=== PATIENT | female | born 1960 | race Caucasian/White ===

== ENCOUNTER 2019-05-02 12:35 | Emergency (ER) | payer OTHER, SELFPAY ==
--- NOTE | 2019-05-02 13:08 | ED.SKABFB ---
HPI - Skin/Abscess/Foreign Bdy General Chief complaint: Wound/Laceration Stated complaint: Possible infection Time Seen by Provider: 05/02/19 13:05 Source: patient and RN notes reviewed Mode of arrival: ambulatory Limitations: no limitations History of Present Illness HPI narrative: 58-year-old female presents with concern for wound infection. Reports she had breast reconstruction surgery, with implants, after breast cancer with a doctor in [place]. Reports she noticed about 2 days ago that the underside of the left breast was weeping. She reports that she called her surgeon who prescribed clindamycin and Bactrim. She reports she just started taking his medications. She reports copious amount of purulent drainage she has been changing the dressing several times daily. She reports on she had a fever of 102, reports intermittent low-grade fever between now and then. Denies general malaise. Patient reports her doctor wanted her to get a culture of the wound. MD complaint: other (Wound) Related Data Home Medications Medication Instructions Recorded Confirmed amitriptyline 10 mg tablet 10 mg PO TID tablet 04/10/19 bupropion HCl 300 mg 24 hr tablet, 300 mg PO QAM 04/10/19 extended release hydrochlorothiazide 25 mg tablet 25 mg PO DAILY 04/10/19 metoprolol succinate 25 mg 25 mg PO DAILY 04/10/19 tablet,extended release 24 hr collagenase clostridium histo. 1 applic TOPICAL DIRECTED 05/02/19 05/02/19 [Santyl] pregabalin 05/02/19 Allergies Allergy/AdvReac Type Severity Reaction Status Date / Time azithromycin Allergy Mild HIVES Verified 11/01/15 20:31 prednisone Allergy Mild HIVES Verified 11/01/15 20:31 erythromycin base Allergy Unknown Verified 11/29/16 10:03 Review of Systems Review of Systems: Narrative: CONSTITUTIONAL: Denies malaise, chills, sweats. Reports fever. CARDIOVASCULAR: Denies chest pain, palpitations, or edema. RESPIRATORY: Denies cough or dyspnea. GASTROINTESTINAL: Denies abdominal pain, nausea, vomiting, diarrhea SKIN: Reports weeping wound under her left breast, denies pain at the wound site MUSCULOSKELETAL: Denies myalgia. NEUROLOGIC: Denies headache. All systems reviewed & are unremarkable except as noted in HPI and below PMFSH Family History Family History (Updated 11/25/13 @ 07:13 by DOCTOR UNKNOWN) Sibling Family history of thyroid disease Hypertension Father Hypertension Mother Hypertension Family history of malignant neoplasm Family history of chronic obstructive pulmonary disease Social History Social History Smoking status: Former smoker Second hand tobacco smoke exposure: No Smoking end date: 03/31/80 Alcohol intake: current Comments At time of signature, agree with nursing past medical, surgical, social and family history. There is no relevant family history pertinent to the presenting complaint Exam Narrative: Exam Narrative: GENERAL: Well-appearing, well-nourished, and in no acute distress. HEAD: Normocephalic EYES: PERRLA, conjunctivae clear ENT: Mucous membranes moist. NECK: Supple. CHEST: No respiratory distress. Speaks in full sentences. HEART: Regular rate and rhythm. No murmur heard. Normal peripheral pulses. SKIN: Warm, dry, no rash. 2.5 cm x 2 cm wound at the surgical site under the left breast with mild surrounding erythema and induration, yellow wound bed, copious purulent drainage, not tender to palpation NEURO: Alert and oriented x3. PSYCH: Normal mood and affect Course Course Emergency Course: Wound culture taken, patient instructed how to get results of culture to send to her doctor in [place]. Patient is aware of diagnosis, understands and agrees to treatment plan. Anticipatory guidance given. Patient agrees to follow-up as directed and is aware of reasons to seek care at the emergency department. Portions of this record may have been created with voice recognition software Vital Signs Vital signs: V
[2019-05-02 13:09] VITALS: BP 161/96; PULSE 114; RESP 16; TEMP 37.9; O2SAT 98
== END 2019-05-02 13:21 | disposition home or self-care (01) ==
PROVIDERS: Emergency Provider Nurse Practitioner
DX: T81.49XA Infection following a procedure, other surgical site, initial encounter (principal); Z87.891 Personal history of nicotine dependence
CPT/HCPCS: 87070; 87075; 87076; 87077; 87186; 87205; 99213; G0463

== ENCOUNTER 2019-09-30 13:38 | Outpatient (CLI) | payer OTHER, SELFPAY ==
--- NOTE | 2019-09-30 | ECG_ITS ---
Measurements Intervals [place] Rate: 76 P: 62 AR: 166 QRS: 35 QRSD: 93 T: 33 QT: 364 QTc: 410 Interpretive Statements SINUS RHYTHM LOW QRS VOLTAGE IN PRECORDIAL LEADS BORDERLINE ECG Electronically Signed On 09-30-2019 14:53:01 CDT by Tommie Singh D.O.
--- NOTE | ~2019-09-30 | XR_ITS ---
EXAMINATION: XR chest 2V 09/30/2019 14:40 INDICATION: Preop. History of breast cancer. PROCEDURE: Two-view chest COMPARISON: 11/18/2018 FINDINGS: The lungs are clear. The cardiomediastinal silhouette is within normal limits. There are no pleural effusions. There is no pneumothorax suspected. There are surgical changes in the right c hest. IMPRESSION: 1: NO ACUTE CARDIOPULMONARY DISEASE. Reviewed, dictated and finalized at location A.
[2019-09-30 14:26] LABS: Hematocrit 38.4 % (37.0-47.0); Hemoglobin 12.4 g/dL (12.0-15.0); Mean Corpuscular HGB Conc 32.3 g/dl (32-36); Mean Corpuscular Hemoglobin 29.5 pg (26-34); Mean Corpuscular Volume 91.4 fl (80-100); Mean Platelet Volume 9.5 fl (7.4-10.4); Platelet Count Result 168 k/mm3 (150-375); Red Cell Distribution Width 14.9 % (11.5-14.5); White Blood Count 5.1 K/mm3 (4.5-10.0)
[2019-09-30 14:35] LABS: Add Urine Microscopic? YES; Appearance Urine Clear (Clear); Bilirubin Urine Negative (Negative); Blood Urine 1+ (Negative); Color Urine Straw (Yellow); Glucose Urine UA Negative (Negative); Ketones Urine Negative (Negative); Leukocyte Esterase Ur Negative LEU/UL (Negative); Mucus Urine Rare /lpf; Nitrate Urine Negative (Negative); Protein Urine Negative (Negative); RBC Urine 0-2 /hpf (0-2); Squamous Epithelial Cell Urine Occasional /hpf (Few); Urobilinogen Urine Negative mg/dL (<2.0); WBC Urine 0-3 /hpf
[2019-09-30 14:40] LABS: Blood Urea Nitrogen 12 mg/dL (7-17); Calcium 9.6 mg/dL (8.4-10.2); Carbon Dioxide 30 mmol/L (22-30); Chloride 100 mmol/L (98-107); Estimated Glomerular Filt Rate > 60; Glucose 102 mg/dL (65-105); Potassium 3.4 mmol/L (3.4-5.0); Sodium 139 mmol/L (137-145)
== END 2019-09-30 13:39 | disposition home or self-care (01) ==
PROVIDERS: PCP Internal Medicine
DX: Z01.818 Encounter for other preprocedural examination (principal); R94.31 Abnormal electrocardiogram [ECG] [EKG]
CPT/HCPCS: 36415; 71046; 80048; 81001; 85027; 93005

== ENCOUNTER → 2019-12-31 12:16 | Outpatient (CLI) | payer OTHER, SELFPAY ==
--- NOTE | ~2019-12-31 | DEXA_ITS ---
Bone Density Report Name: Yashira Heller Age: 59 Sex: Female Ethnicity: White Date of : 1960 Indication: osteopenia; parental hip fracture; cancer; postmenopausal Referring Provider: IVONNE, OZZIE Study: Bone densitometry was performed. Exam Date: December 31, 2019 Accession number: [id number] Bone Density: Region BMD T-score Z-score Classification AP Spine (L1-L4) 0.704 -3.1 -1.8 Osteoporosis Femoral Neck (Left) 0.565 -2.6 -1.3 Osteoporosis Total Hip (Left) 0.680 -2.2 -1.3 Osteopenia Femoral Neck (Right) 0.534 -2.8 -1.6 Osteoporosis Total Hip (Right) 0.702 -2.0 -1.1 Osteopenia Total Hip Mean 0.691 -2.1 -1.2 Osteopenia World Health Organization criteria for BMD impression classify patients as: Normal (T-score at or above -1.0), Osteopenia (T-score between -1.0 and -2.5), or Osteoporosis (T-score at or below -2.5). 10-year Fracture Risk: FRAX not reported because: Some T-score for Spine Total or Hip Total or Femoral Neck at or below -2.5 Previous Exams: Region Exam Age BMD T-score BMD Change BMD Change Date g/cm2 vs Baseline vs Previous AP Spine(L1-L4) 12/31/2019 59 0.704 -3.1 -0.075* -0.075* 01/29/2017 56 0.778 -2.4 Total Hip(Left) 12/31/2019 59 0.680 -2.2 -0.018 -0.018 01/29/2017 56 0.698 -2.0 Total Hip(Right) 12/31/2019 59 0.702 -2.0 -0.020 -0.020 01/29/2017 56 0.722 -1.8 *Denotes significance at 95% confidence level, LSC for AP Spine = 0.022 g/cm2, LSC for Total Hip = 0.027 g/cm2 Clinical Information Provided by Patient: Parent has had a hip fracture Has used the following medications: Boniva (i.e. ibandronate), Vitamin D, Calcium Has the following medical conditions: Cancer Patient maximum height was 62.0 Menopause Age: 51 No regular weight bearing exercise Drinks caffeinated beverages Onset of menses at age 14 Number of children 2 Missed period for more than 6 months in a row Impression: The patient has osteoporosis, based on the Total Spine T-score. The patient has risk factors, including: parental hip fracture. The BMD for the AP Spine(L1-L4) decreased, changing by -0.075 since the last DXA exam. Discussion: INCREASED RISK OF FRACTURE. BONE DENSITY IS UNDESIRABLY LOW AT ONE OR MORE SKELETAL SITES, CONSISTENT WITH POSTMENOPAUSAL OSTEOPOROSIS. This patient's lowest T-score meets the World Health Organization's (WHO) criteria for osteoporosis at one or more
== END ==
PROVIDERS: PCP Internal Medicine; Visit Provider Nurse Practitioner
DX: M85.88 Other specified disorders of bone density and structure, other site (principal); M81.0 Age-related osteoporosis without current pathological fracture; M85.852 Other specified disorders of bone density and structure, left thigh; M85.851 Other specified disorders of bone density and structure, right thigh
CPT/HCPCS: 77080

== ENCOUNTER 2020-07-25 20:54 | Emergency (ER) | payer OTHER, SELFPAY ==
--- NOTE | ~2020-07-25 | CT_ITS ---
EXAMINATION: CT cervical spine wo con DATE: 07/25/2020 22:39 INDICATION: Fall with head injury post fall. TECHNIQUE: Computed tomography (CT) of the cervical spine was performed without intravenous contrast. Automated exposure control and iterative reconstruction technique were employed. The dose-length pro duct was 143.36 mGy-cm. COMPARISON: None FINDINGS: Straightening of the upper cervical lordosis. Vertebral body heights are normal. No fracture. Moderat e disc height loss at C4-C5 and C5-C6. Is severe bilateral uncovertebral osteoarthritis and posterior disc osteophyte complexes result in mild central canal and bilateral neural foraminal stenosis at [place] th levels. Multilevel mild bilateral cervical facet osteoarthritis. Cervical soft tissues are unremar kable. Mild biapical pleural-parenchymal scarring. Incidentally noted right azygos lobe. IMPRESSION: 1. Moderate mid cervical spondylosis. No acute osseous abnormality. Reviewed, dictated and finalized at location A.
--- NOTE | ~2020-07-25 | XR_ITS ---
EXAMINATION: XR lumbar spine 2-3V, XR pelvis 1-2V DATE: 07/25/2020 22:43 (accession [id number]), 07/25/2020 22:44 (accession [id number]) INDICATION: Low back and right hip pain post fall TECHNIQUE: 1. Anteroposterior and lateral views of the lumbar spine, and cone-down lateral view of the lumbosacr al junction were obtained. 2. AP view of the pelvis was obtained. COMPARISON: None. FINDINGS: Lumbar spine: Alignment is normal. Transitional partially lumbarized S1 segment. Likely physiologic mild anterior w edging at T11 and T12 and minimal anterior wedging at L1 and L2. Disc heights are normal. Mild to mod erate lower lumbar predominant facet osteoarthritis. There are couple 3 mm calcifications likely repr esenting renal stones project over the left kidney. Pelvis: Alignment is normal. No fracture. Bilateral hip joint spaces are normal. Mild bilateral sacroiliac os teoarthritis. Postoperative changes with multiple surgical clips both the left and right pelvis. IMPRESSION: 1. No acute osseous abnormality in the lumbar spine or pelvis. 2. Mild to moderate lower lumbar predominant facet osteoarthritis. 3. A couple 3 mm likely left renal stones. Reviewed, dictated and finalized at location A. IMPRESSION: 1. No acute osseous abnormality in the lumbar spine or pelvis. 2. Mild to moderate lower lumbar predominant facet osteoarthritis. 3. A couple 3 mm likely left renal stones.
--- NOTE | ~2020-07-25 | CT_ITS ---
EXAMINATION: CT brain wo con DATE: 07/25/2020 22:38 INDICATION: Head injury post fall TECHNIQUE: Computed tomography (CT) of the head was performed without intravenous contrast. Sagittal and coronal reconstructions were performed. The mA was adjusted according to patient size. Iterative reconstruction technique was employed. The dose-length product was 681.00 mGy-cm. COMPARISON: head CT dated 08/03/2005 FINDINGS: No fracture. No acute intracranial hemorrhage, acute infarction or abnormal extra axial fluid collect ion. There is minimal scattered white matter hypoattenuation consistent with chronic small vessel isc hemic disease. Ventricles are normal and symmetric. No mass/mass effect. Mild mucosal thickening the left maxillary sinus. The orbits and mastoid air cells are normal. IMPRESSION: 1. Normal aging brain. No fracture or acute intracranial process. Reviewed, dictated and finalized at location A.
[2020-07-25 20:56] VITALS: BP 165/94; PULSE 87; RESP 17; TEMP 36.6; O2SAT 100
--- NOTE | 2020-07-25 22:03 | ED.HEATRA ---
HPI - Head Injury General Chief complaint: Head Injury Stated complaint: fall off stool, cracked head/neck Time Seen by Provider: 07/25/20 21:10 Source: patient and family Mode of arrival: ambulatory Limitations: no limitations History of Present Illness HPI Narrative: Patient is 59 years old white female had a fall off a chair about 1.5 feet above the ground. Landed backward struck the back of her neck and head on a countertop. Patient denies loss of consciousness, went down to the floor, complaining of lower back pain. Patient denies any fever, chills, nausea, vomiting, diarrhea, constipation, chest pain or abdominal pain. Related Data Home Medications Medication Instructions Recorded Confirmed collagenase clostridium histo. 1 applic TOPICAL DIRECTED 05/02/19 09/08/19 [Santyl] pregabalin 75 mg PO DAILY 05/02/19 09/08/19 Allergies Allergy/AdvReac Type Severity Reaction Status Date / Time azithromycin Allergy Mild HIVES Verified 11/01/15 20:31 prednisone Allergy Mild HIVES Verified 11/01/15 20:31 erythromycin base Allergy Unknown Verified 11/29/16 10:03 Review of Systems Review of Systems: Narrative: CONSTITUTIONAL: Denies fever, chills, or sweats. EYES: Denies visual changes, redness, or discharge. ENT: Denies rhinorrhea, congestion, sore throat, or otalgia. CARDIOVASCULAR: Denies chest pain, palpitations, or edema. RESPIRATORY: Denies cough or dyspnea. GASTROINTESTINAL: Denies abdominal pain, nausea, vomiting, or diarrhea. GENITOURINARY: Denies dysuria or hematuria. SKIN: Denies rash or itching. MUSCULOSKELETAL: Denies back pain, joint pain, or myalgia. NEUROLOGIC: Denies headache, numbness, or weakness. PSYCHIATRIC: Denies anxiety or depression. [facility] Family History Family History Sibling Family history of thyroid disease Hypertension Father Hypertension Mother Hypertension Family history of malignant neoplasm Family history of chronic obstructive pulmonary disease Social History Social History Smoking status: Former smoker Second hand tobacco smoke exposure: No Smoking end date: 03/31/80 Alcohol intake: current Gender identity (if verbalized by the patient): Female Exam Narrative: Exam Narrative: General appearance: Well-developed, well-nourished Skin: Normal color Head: Normocephalic, nontraumatic Eyes: Clear conjunctiva ENT: Oropharynx normal, ears normal, nose normal Neck: Supple, diffuse tenderness posteriorly Chest and respiratory: Airway patent, no respiratory distress, no accessory muscle use Heart: Regular rate/rhythm Abdomen: Soft, nontender, no organomegaly, quiet bowel sounds Vascular: Normal peripheral pulses, normal capillary refill. 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 CT head and cervical spine ordered. Patient also complaining of lower back pain, history of osteopo
[2020-07-25] MEDS: ACETAMINOPHEN 325 MG TABLET 650 MG PO (23:40)
[2020-07-25] MEDS: ONDANSETRON HCL ODT 4 MG TABLET PO (23:44)
[2020-07-25 23:55] VITALS: BP 141/94; PULSE 87; RESP 16; TEMP 36.7; O2SAT 97
== END 2020-07-25 23:56 | disposition home or self-care (01) ==
PROVIDERS: Emergency Provider Emergency Medicine; PCP Internal Medicine
DX: S09.90XA Unspecified injury of head, initial encounter (principal); S10.93XA Contusion of unspecified part of neck, initial encounter; S30.0XXA Contusion of lower back and pelvis, initial encounter; N20.0 Calculus of kidney; M47.816 Spondylosis without myelopathy or radiculopathy, lumbar region; M47.812 Spondylosis without myelopathy or radiculopathy, cervical region; W07.XXXA Fall from chair, initial encounter
CPT/HCPCS: 70450; 72100; 72125; 72170; 99284; A9270; L0140

== ENCOUNTER 2021-07-31 00:43 | Emergency (ER) | payer OTHER, SELFPAY ==
[2021-07-31] VITALS (11 sets, daily range): BP systolic 114–145; BP diastolic 85–89; PULSE 73–93; RESP 13–21; TEMP 36.6; O2SAT 100
--- NOTE | ~2021-07-31 | XR_ITS ---
EXAMINATION: XR chest 2V DATE: 07/31/2021 01:15 INDICATION: Altered mental status TECHNIQUE: PA and lateral views of the chest were obtained. COMPARISON: Chest radiograph dated 09/30/2019 FINDINGS: The lungs remain clear with no focal airspace opacities, pulmonary edema, pleural effusion or pneumot horax. The cardiomediastinal silhouette is normal. Mild thoracic levocurvature. Pectus excavatum. Christin ast implants. Moderate thoracic spondylosis. IMPRESSION: 1. No acute cardiopulmonary disease. Reviewed, dictated and finalized at location A.
--- NOTE | ~2021-07-31 | CT_ITS ---
EXAMINATION: CT brain wo con DATE: 07/31/2021 01:13 INDICATION: Altered mental status. Confusion. Diplopia. TECHNIQUE: Computed tomography (CT) of the head was performed without intravenous contrast. The mA wa s adjusted according to patient size. Iterative reconstruction technique was employed. The dose-lengt h product was 605.33 mGy-cm. COMPARISON: CT 07/25/2020 FINDINGS: There is no intracranial hemorrhage, acute infarction, or abnormal intracranial mass lesion . The ventricles are normal in size. The orbits are normal. There is mild mucosal thickening in the p aranasal sinuses. The mastoid air cells are normal. IMPRESSION: 1. Normal brain. Reviewed, dictated and finalized at location D. IMPRESSION: 1. Normal brain.
--- NOTE | 2021-07-31 00:53 | ECG_ITS ---
Measurements Intervals [place] Rate: 79 P: 62 [place]: 167 QRS: 8 QRSD: 93 T: 38 QT: 361 QTc: 416 Interpretive Statements SINUS RHYTHM LOW QRS VOLTAGE IN PRECORDIAL LEADS BORDERLINE T WAVE ABNORMALITY- ANT/INF LEADS BASELINE ARTIFACT- I, III, AVL, AVF, V1, V3-V4 BORDERLINE ECG Electronically Signed On 07-31-2021 12:49:56 CDT by Tommie Singh D.O.
[2021-07-31 01:04] LABS: Glucose Point of Care 96 mg/dl (65-105)
[2021-07-31 01:07] LABS: Basophils Absolute Auto 0.1 K/mm3 (0.0-0.1); Basophils Percent Auto 1.2 % (0.2-1.2); Eosinophils Absolute Auto 0.4 K/mm3 (0-0.3); Eosinophils Percent Auto 7.1 % (0-4.4); Hemoglobin 12.7 g/dL (12.0-15.0); Immature Granulocyte Absolute 0.01 K/mm3 (0.00-0.031); Immature Granulocyte Percent A 0.2 % (0-0.5); Lymphocytes Absolute Auto 1.25 K/mm3 (0.9-3.2); Mean Corpuscular HGB Conc 32.6 g/dl (32-36); Mean Corpuscular Hemoglobin 30.9 pg (26-34); Mean Corpuscular Volume 94.9 fl (80-100); Mean Platelet Volume 9.5 fl (7.4-10.4); Monocytes Absolute Auto 0.8 K/mm3 (0.1-0.6); Monocytes Percent Auto 14.6 % (2.6-8.5); Neutrophils Absolute Auto 2.8 K/mm3 (1.3-6.7); Neutrophils Percent Auto 52.9 % (45.5-73.1); Platelet Count Result 175 k/mm3 (150-375); Red Blood Count 4.11 M/mm3 (4.2-5.4); Red Cell Distribution Width 12.9 % (11.5-14.5); White Blood Count 5.2 K/mm3 (4.5-10.0)
[2021-07-31 01:20] LABS: Anion Gap 8 mmol/L (8-16); Blood Urea Nitrogen 17 mg/dL (7-17); Carbon Dioxide 29 mmol/L (22-30); Chloride 101 mmol/L (98-107); Estimated CRCL calculation 50 ml/min; Estimated Glomerular Filt Rate > 60; Glucose 101 mg/dL (65-110); Potassium 4.2 mmol/L (3.4-5.0); Sodium 138 mmol/L (137-145)
[2021-07-31 01:31] LABS: INR 1.1; Partial Thromboplastin Time 31.4 SECONDS (22.3-36.8)
[2021-07-31 01:38] LABS: Appearance Urine Clear (Clear); Bilirubin Urine Negative (Negative); Color Urine Yellow (Yellow); Glucose Urine UA Negative (Negative); Ketones Urine Trace mg/dL (Negative); Leukocyte Esterase Ur 1+ LEU/UL (Negative); Nitrate Urine Negative (Negative); Protein Urine Negative (Negative); Urobilinogen Urine 0.2 mg/dL (<2.0); pH Urine 6.5 (5.0-9.0)
[2021-07-31 01:42] LABS: Add Urine Microscopic? YES; Blood Urine Trace (Negative)
[2021-07-31 01:52] LABS: Amphetamine Screen Urine Negative (Negative); Barbiturate Screen Urine Negative (Negative); Benzodiazepines Screen Urine Negative (Negative); Cannabinoid Screen Urine Negative (Negative); Cocaine Screen Urine Negative (Negative); Methadone Screen Urine Negative (Negative); Opiate Screen Urine Negative (Negative); Phencyclidine Screen Urine Negative (Negative)
--- NOTE | 2021-07-31 02:39 | ED.AMS ---
HPI - Altered Mental Status General Chief Complaint: Altered Mental Status Stated Complaint: seeing double Time Seen by Provider: 07/31/21 00:50 History of Present Illness HPI narrative: Patient is a 60-year-old female who presents ER with dizziness, double vision, and altered mental status. According to family patient had onset of symptoms at 12:30 AM. Patient could not ambulate/walk due to dizziness. She reports seeing double vision pupils heads. No focal weakness in arm or leg. No slurred speech. No history of CVA. Patient is not on blood thinners. She experienced no trauma to her head. Related Data Home Medications Medication Instructions Recorded Confirmed collagenase clostridium histo. 1 applic TOPICAL DIRECTED 05/02/19 03/12/21 [Santyl] pregabalin 75 mg PO DAILY 05/02/19 03/12/21 Allergies Allergy/AdvReac Type Severity Reaction Status Date / Time azithromycin Allergy Mild HIVES Verified 07/31/21 00:59 prednisone Allergy Mild HIVES Verified 07/31/21 00:59 erythromycin base Allergy Unknown Vomiting Verified 07/31/21 00:59 Review of Systems Review of Systems: All systems reviewed & are unremarkable except as noted in HPI and below Constitutional: Constitutional: Denies chills, Denies fever(s) and Denies weakness Eyes: Comments: Diploplia ENT: Denies nasal congestion and Denies sore throat Cardiovascular: Cardiovascular: Denies chest pain and Denies rapid heart rate Respiratory: Respiratory: Denies cough and Denies dyspnea Gastrointestinal: Gastrointestinal: Denies abdominal pain, Denies nausea and Denies vomiting Genitourinary: Genitourinary: Denies nocturia, Denies dysuria and Denies flank pain Neurologic: Reports dizziness, Denies headache(s), Denies focal weakness and Denies numbness Comments: diploplia PMFSH Past Medical History Medical History (Updated 07/31/21 @ 02:58 by Carlitos Caba MD) Essential (primary) hypertension Hypothyroidism, unspecified Major depressive disorder, single episode, unspecified Other hyperlipidemia Surgical History Surgical History (Updated 07/31/21 @ 02:56 by Carlitos Caba MD) H/O breast reconstruction History of mastectomy Family History Family History Sibling Family history of thyroid disease Hypertension Father Hypertension Mother Hypertension Family history of malignant neoplasm Family history of chronic obstructive pulmonary disease Social History Social History Smoking status: Former smoker Second hand tobacco smoke exposure: No Smoking end date: 03/31/80 Alcohol intake: current Gender identity (if verbalized by the patient): Female Exam Narrative: GENERAL: Well-appearing, well-nourished, and in no acute distress. HEAD: Normocephalic, atraumatic. EYES: PERRLA and EOMI. ENT: Mucous membranes moist. CHEST: Clear to auscultation. No respiratory distress. HEART: Regular rate and rhythm. Normal peripheral pulses. ABDOMEN: Soft, nontender, nondistended. EXTREMITIES: Normal range of motion. No edema. SKIN: Warm, dry, no rash. NEURO: Alert and oriented x3. Cranial nerves II through XII intact. No upper or lower extremity drift. Normal finger-nose testing and [id number] testing. No expressive aphasia or dysarthria. Patient is able to ambulate. Patient has a positive Romberg sign. She reports diplopia. PSYCH: Normal mood and affect. Course Reevaluation(s) Reevaluation #1: Discussed with Dr. Perez with [facility] neurology/stroke team. Recommends transfer to the ER due to time critical diagnosis. I spoke with Dr. Garcia in the ER who has accepted the patient. Date: 07/31/21 Time: 02:54 Vital Signs Vital signs: Vital Signs Temperature 97.8 F 07/31/21 00:47 Pulse Rate 81 07/31/21 00:47 Respiratory Rate 20 07/31/21 00:47 Blood Pressure 145/89 H 07/31/21 00:47 Pulse Oximetry 100 0
== END 2021-07-31 03:17 | disposition short-term general hospital (02) ==
PROVIDERS: Emergency Provider Emergency Medicine; PCP Internal Medicine
DX: I63.9 Cerebral infarction, unspecified (principal); I10 Essential (primary) hypertension; R29.700 NIHSS score 0; E03.9 Hypothyroidism, unspecified; F32.9 Major depressive disorder, single episode, unspecified; E78.49 Other hyperlipidemia; Z87.891 Personal history of nicotine dependence
CPT/HCPCS: 36415; 70450; 71046; 80048; 80307; 81001; 82948; 85025; 85610; 85730; 93005; 99285

== ENCOUNTER → 2022-01-01 10:21 | Outpatient (CLI) | payer OTHER, SELFPAY ==
--- NOTE | ~2022-01-01 | DEXA_ITS ---
Bone Density Report Name: AMIRA DESHPANDE Age: 61 Sex: Female Ethnicity: White Date of : 1960 Indication: postmenopausal osteoporosis; monitoring treatment; parental hip fracture; cancer; Referring Provider: LYNSEY KIRKLAND Study: Bone densitometry was performed. Exam Date: January 01, 2022 Accession number: [id number] Bone Density: Region BMD T-score Z-score Classification AP Spine (L1-L4) 0.790 -2.3 -0.9 Osteopenia Femoral Neck (Left) 0.566 -2.6 -1.2 Osteoporosis Total Hip (Left) 0.704 -2.0 -0.9 Osteopenia Femoral Neck (Right) 0.593 -2.3 -1.0 Osteopenia Total Hip (Right) 0.717 -1.8 -0.8 Osteopenia Total Hip Mean 0.711 -1.9 -0.9 Osteopenia World Health Organization criteria for BMD impression classify patients as: Normal (T-score at or above -1.0), Osteopenia (T-score between -1.0 and -2.5), or Osteoporosis (T-score at or below -2.5). 10-year Fracture Risk: FRAX not reported because: Some T-score for Spine Total or Hip Total or Femoral Neck at or below -2.5 Treated for osteoporosis Previous Exams: Region Exam Age BMD T-score BMD Change BMD Change Date g/cm2 vs Baseline vs Previous AP Spine(L1-L4) 01/01/2022 61 0.790 -2.3 0.011 0.086* 12/31/2019 59 0.704 -3.1 -0.075* -0.075* 01/29/2017 56 0.778 -2.4 Total Hip(Left) 01/01/2022 61 0.704 -2.0 0.006 0.024 12/31/2019 59 0.680 -2.2 -0.018 -0.018 01/29/2017 56 0.698 -2.0 Total Hip(Right) 01/01/2022 61 0.717 -1.8 -0.005 0.016 12/31/2019 59 0.702 -2.0 -0.020 -0.020 01/29/2017 56 0.722 -1.8 *Denotes significance at 95% confidence level, LSC for AP Spine = 0.022 g/cm2, LSC for Total Hip = 0.027 g/cm2 Clinical Information Provided by Patient: Parent has had a hip fracture Is being treated for osteoporosis Has used the following medications: Prolia (i.e. denosumab), Vitamin D, Calcium, Anestrozole Has the following medical conditions: Cancer Patient maximum height was 62.0 Menopause Age: 51 Drinks caffeinated beverages Onset of menses at age 14 Number of children 2 Missed period for more than 6 months in a row Impression: The patient has osteoporosis, based on the Left Femoral Neck T-score. The patient has risk factors, including: parental hip fracture. No significant bone loss was observed. Discussion: PATIENT UNDER TREATMENT WITH NO SIGNIFICANT BMD L
== END ==
PROVIDERS: PCP Internal Medicine Medical Oncology; Visit Provider Obstetrics & Gynecology Gynecology
DX: Z78.0 Asymptomatic menopausal state (principal); M81.0 Age-related osteoporosis without current pathological fracture; M85.88 Other specified disorders of bone density and structure, other site; M85.852 Other specified disorders of bone density and structure, left thigh; M85.851 Other specified disorders of bone density and structure, right thigh
CPT/HCPCS: 77080

== ENCOUNTER 2023-03-04 15:24 | Outpatient (CLI) | payer BC, SELFPAY ==
[2023-03-04 19:51] LABS: Alanine Aminotransferase 21 U/L (6-35); Albumin Level 4.5 g/dL (3.5-5.1); Alkaline Phosphatase 111 U/L (38-126); Anion Gap 9 mmol/L (8-16); Aspartate Amino Transferase 38 U/L (14-36); Bilirubin,Total 0.6 mg/dL (0.2-1.3); Blood Urea Nitrogen 11 mg/dL (7-17); Calcium 9.8 mg/dL (8.4-10.2); Carbon Dioxide 33 mmol/L (22-30); Chloride 98 mmol/L (98-107); Cholesterol 221 mg/dL (0-200); Estimated Glomerular Filt Rate > 60; Glucose 93 mg/dL (65-110); HDL Direct 38 mg/dL; Magnesium 2.3 mg/dL (1.6-2.3); Potassium 4.1 mmol/L (3.4-5.0); Sodium 140 mmol/L (137-145); Triglycerides 120 mg/dL (<150)
[2023-03-04 20:04] LABS: LDL Cholesterol Direct 141 mg/dL
[2023-03-04 20:08] LABS: Free T4 Free Thyroxine 1.76 ng/mL (0.78-2.19)
[2023-03-04 20:15] LABS: Thyroid Stimulating Hormone 0.097 uIU/mL (0.465-4.680)
[2023-03-04 20:45] LABS: Basophils Percent Auto 0.6 % (0.2-1.2); Eosinophils Percent Auto 0.4 % (0-4.4); Hematocrit 41.1 % (37.0-47.0); Hemoglobin 13.6 g/dL (12.0-15.0); Immature Granulocyte Absolute 0.01 K/mm3 (0.00-0.031); Immature Granulocyte Percent A 0.2 % (0-0.5); Lymphocytes Percent Auto 23.1 % (18.3-44.2); Mean Corpuscular HGB Conc 33.1 g/dl (32-36); Mean Corpuscular Hemoglobin 30.6 pg (26-34); Mean Corpuscular Volume 92.6 fl (80-100); Mean Platelet Volume 10.1 fl (7.4-10.4); Monocytes Absolute Auto 0.5 K/mm3 (0.1-0.6); Monocytes Percent Auto 8.9 % (2.6-8.5); Neutrophils Absolute Auto 3.5 K/mm3 (1.3-6.7); Neutrophils Percent Auto 66.8 % (45.5-73.1); Platelet Count Result 243 k/mm3 (150-375); Red Blood Count 4.44 M/mm3 (4.2-5.4); Red Cell Distribution Width 13.2 % (11.5-14.5); White Blood Count 5.2 K/mm3 (4.5-10.0)
== END 2023-03-04 15:25 | disposition home or self-care (01) ==
LOC: ANHGOSHLAB 15:25
PROVIDERS: PCP Family Medicine; Visit Provider Family Medicine
DX: E03.9 Hypothyroidism, unspecified (principal); R53.83 Other fatigue; M79.10 Myalgia, unspecified site; Z13.220 Encounter for screening for lipoid disorders; Z13.228 Encounter for screening for other metabolic disorders
CPT/HCPCS: 36415; 80053; 80061; 83735; 84439; 84443; 85025

== ENCOUNTER 2023-09-18 09:12 | Outpatient (CLI) | payer BC, SELFPAY ==
[2023-09-18 15:49] LABS: Thyroid Stimulating Hormone Reflex 0.037 uIU/mL (0.465-4.68)
[2023-09-19 05:34] LABS: Free T4 Free Thyroxine Reflex 1.66 ng/dL (0.78-2.19)
[2023-09-19 06:16] LABS: Total Triiodothyronine (T3) 1.85 NG/ML (0.97-1.69)
== END 2023-09-18 09:13 | disposition home or self-care (01) ==
LOC: ANHGOSHLAB 09:13
PROVIDERS: PCP Family Medicine; Visit Provider Family Medicine
DX: Z13.29 Encounter for screening for other suspected endocrine disorder (principal)
CPT/HCPCS: 36415; 84439; 84443; 84480

== ENCOUNTER 2024-03-15 09:22 | Outpatient (CLI) | payer BC, SELFPAY ==
[2024-03-15 19:46] LABS: Free T4 Free Thyroxine 1.51 ng/dL (0.78-2.19)
--- OUTSIDE RECORDS SUMMARY | 2024-03-22 04:43 | XMS_ITS | Referral Summary ---
Author Organization [facility] Address [address] [place] [address] Care Team Providers Care Channel Director Name Role Phone Bipin Santiago MD Primary Care Provider [phone] Source Comments [employer] [facility],non-owned Affiliates and Associated Physician Practices is amultiple site organization consisting of ambulatory clinics and hospital sitesin [place], [place], [place] and [place]. This disclosure is being madepursuant to the Care Everywhere program and may not contain all information available regarding this patient. Last updated 17.[employer] [facility] Allergies No known active allergies Medications * Be aware that medications may not be up to date on this document. Alwaysverify current medications with the patient. Medication Sig Dispensed Refills Start Date End Date Status amitriptyline (ELAVIL) 25 MG tablet Take 50 mg by mouth at bedtime 06/22/2021 Active anastrozole (ARIMIDEX) 1 MG tablet Take 1 mg by mouth once daily 06/16/2021 Active buPROPion XL 24hr (WELLBUTRIN-XL) 300 MG tablet Take 300 mg by mouth once daily 06/29/2021 Active Cholecalciferol 50 MCG (2000 UT) Take 2,000 Units by mouth once daily Active levothyroxine (SYNTHROID) 100 MCG tablet Take 100 mcg by mouth once daily 09/19/2020 Active hydroCHLOROthiazide (HYDRODIURIL) 25 MG tablet Take 25 mg by mouth once daily 09/12/2020 Active meloxicam (MOBIC) 15 MG tablet Take 15 mg by mouth as needed Active metoprolol succinate XL 24hr (TOPROL XL) 25 MG tablet Take 25 mg by mouth once daily Active multivitamins (ONE A DAY) capsule Take 1 capsule by mouth every morning Active Active Problems Problem Noted Date Diagnosed Date Diplopia 07/31/2021 Hypertension 07/31/2021 Hypothyroidism 07/31/2021 Dizziness 07/31/2021 Chemotherapy-induced peripheral neuropathy 04/24 History of malignant neoplasm of breast 03/18/20 17 Immunizations Name Administration Dates Next Due INFLUENZA 01/29/2017 INFLUENZA VACCINE, CELL CULT URE, QUADR. (FLUCELVAX QUADRIVALENT; 6MO+) (CCIIV4) 01/17/2020,01/08/2019 TDAP (7yrs+) 11/01/2015 Social History Tobacco Use Types Packs/Day Years Used Date Smoking Tobacco: Never Assessed Sex and Gender Information Value Date Recorded Sex Assigned at Not on file Gender Identity Not on file Sexual Orientation Not on file Last Filed Vital Signs Vital Sign Reading Time Taken Comments Blood Pressure 111/61 07/31/2021 2:50 PM CDT Pulse 76 07/31/2021 2:50 PM CDT Temperature 36.8 ??C (98.2 ??F) 07/31/2021 12:05 PM C DT Respiratory Rate 15 07/31/2021 2:50 PM CDT Oxygen Saturation 98% 07/31/2021 2:50 PM CDT Inhaled Oxygen Concentration - - Weight 55.3 kg (122 lb) 07/31/2021 4:30 AM CDT Height - - Body Mass Index - - Plan of Treatment Not on file Advance Directives * Full Code (Latest Code Status on File) Date Activated Date Inactivated Comments 07/31/2021 4:53 AM 07/31/2021 4:22 PM Care Teams Channel Director Relationship Specialty Start Date End Date Bipin Santiago MD [address] [place] [address] PCP - General Internal Medicine 07/31/21
--- OUTSIDE RECORDS SUMMARY | 2024-03-22 04:43 | XMS_ITS | Clinical Summary ---
Author Organization [email or web address] Address [address] [place] [address] Care Team Providers Care Heel Coverer Machine Operator Name Role Phone Bipin Santiago MD Primary Care Provider [phone] Source Comments [employer],non-owned Affiliates and Associated Physician Practices is amultiple site organization consisting of ambulatory clinics and hospital sitesin [place], [place], [place] and [place]. This disclosure is being madepursuant to the Care Everywhere program and may not contain all information available regarding this patient. Last updated 17.[employer] [email or web address] Allergies No known active allergies Medications * [...] Mass Index - - Plan of Treatment Health Maintenance Due Date Last Done Comments COLOGUARD (AGES 45-75) - COL ON CA SCREENING 1960 COLON MONITORING 1960 COLONOSCOPY - COLON CA SCREENING 1960 CT COLONOGRAPHY - COLON CA SCREENING 1960 Colorectal Cancer Screening 1960 FIT - COLON CA SCREENING 1960 FLEX SIG - COLON CA SCREENING 1960 LIPID TESTING 1960 MAMMOGRAM 1960 PAP SMEAR 1960 HIV SCREENING 11/14/1975 HEPATITIS C SCREENING 11/09/1978 ZOSTER VACCINE (1 of 2) 2010 DEPRESSION SCREENING 03/31/2023 COVID-19 VACCINE (1 - 2023-2 5 season) 2023 INFLUENZA VACCINE (#1) 2023 0, 01/08/2019, 01/29/2017 DTAP/TDAP/TD VACCINES (2 - T d or Tdap) 10/31/2025 11/01/2015 Respiratory Syncytial Virus (RSV) Vaccine Pt: or over 60 yrs (1 - 1-dose 75+ series) 11/14/2035 HEPATITIS B VACCINE Aged Out No longe r eligible based on patient's age to complete this topic HIB VACCINE Aged Out No longer eligi ble based on patient's age to complete this topic HPV VACCINE Aged Out No longer eligi ble based on patient's age to complete this topic MENINGOCOCCAL VACCINE Aged Out No erika oliver eligible based on patient's age to complete this topic PNEUMOCOCCAL VACCINE Aged Out No long er eligible based on patient's age to complete this topic Advance Directives * Full Code (Latest Code Status on File) Date Activated Date Inactivated Comments 07/31/2021 4:53 AM 07/31/2021 4:22 PM Care Teams Heel Coverer Machine Operator Relationship Specialty Start Date End Date Bipin Santiago MD [address] [place] [address] PCP - General Internal Medicine 07/31/21
--- OUTSIDE RECORDS SUMMARY | 2024-03-22 04:44 | XMS_ITS | Patient Health Summary ---
Author Organization [facility] [employer] Address [address] [address] Care Team Providers Care Gas Station Supervisor Name Role Phone Bipin Santiago MD Primary Care Provider [phone] Note from [facility],non-owned Affiliates and Associated Physician Practices is amultiple site organization consisting of ambulatory clinics and hospital sitesin [place], [place], [place] and [place]. This disclosure is being madepursuant to the Care Everywhere program and may not contain all information available regarding this patient. Last updated 17.[facility] Allergies No known active allergies Medications * Be aware that medications may not be up to date on this document. Alwaysverify current medications with the patient. * amitriptyline (ELAVIL) 25 MG tablet(Started 06/22/2021) Take 50 mg by mouth at bedtime * anastrozole (ARIMIDEX) 1 MG tablet(Started 06/16/2021) Take 1 mg by mouth once daily * buPROPion XL 24hr (WELLBUTRIN-XL) 300 MG tablet(Started 06/29/2021) Take 300 mg by mouth once daily * Cholecalciferol 50 MCG (1999 UT) Take 2,000 Units by mouth once daily * levothyroxine (SYNTHROID) 100 MCG tablet(Started 09/19/2020) Take 100 mcg by mouth once daily * hydroCHLOROthiazide (HYDRODIURIL) 25 MG tablet(Started 09/12/2020) Take 25 mg by mouth once daily * meloxicam (MOBIC) 15 MG tablet Take 15 mg by mouth as needed * metoprolol succinate XL 24hr (TOPROL XL) 25 MG tablet Take 25 mg by mouth once daily * multivitamins (ONE A DAY) capsule Take 1 capsule by mouth every morning Active Problems Problem Noted Date Diagnosed Date Diplopia 07/31/2021 Hypertension 07/31/2021 Hypothyroidism 07/31/2021 Dizziness 07/31/2021 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 (FLUCELVAX QUADRIVALENT; 6MO+) (CCIIV4)(Given 01/17/2020, 01/08/2019) * TDAP (7yrs+)(Given 11/01/2015) Social History Tobacco Use Types Packs/Day Years [...] - - Body Mass Index - - Procedures * CARDIAC EKG ORDER(Performed 08/02/2021) * MRI BRAIN WO CONTRAST(Performed 07/31/2021) Performed for Diplopia * PT EVAL AND TREAT(Performed 07/31/2021) Performed for Diplopia * EKG 12-LEAD(Performed 07/31/2021) Performed for Diplopia * TROPONIN I(Performed 07/31/2021) * PT-INR [facility](Performed 07/31/2021) * COMPREHENSIVE METABOLIC PANEL(Performed 07/31/2021) * CBC W AUTO DIFFERENTIAL(Performed 07/31/2021) * CT ANGIO BRAIN NECK STROKE(Performed 07/31/2021) Performed for Diplopia * CT BRAIN STROKE(Performed 07/31/2021) Performed for Diplopia Results * CARDIAC EKG ORDER (08/02/2021 10:17 AM CDT) Narrative 08/02/2021 10:17 AM CDT Ordered by an unspecified provider. Scanned Document CARDIAC SERVICES ORD ERABLES * MRI BRAIN NON CONTRAST (07/31/2021 6:43 AM CDT) Anatomical Region Laterality Modality Head Magnetic Resonan ce 07/31/2021 8:02 AM CDT Impressions 07/31/2021 9:27 AM CDT IMPRESSION: 1.No evidence of restricted diffusion to suggest an acute infarction. Dictated by Celeste Gruber M.D. (business services vice president) This report was approved ??by Celeste Gruber ?? on 07/31/2021 9:27 AM . I, Dr. LUZ ELENA ORTIZ have personally reviewed and interpreted this examination/study. This report was electronically signed by LUZ ELENA ORTIZ ??on 07/31/2021 9:27 AM . Narrative 07/31/2021 9:27 AM CDT MRI BRAIN WO CONTRAST DATE: 07/31/2021 6:43 AM EXAMINATION: Magnetic resonance imaging (MRI) of the brain without contrast HISTORY: H53.2: Diplopia TECHNIQUE: MRI of the brain was performed without contrast according to standard protocol. COMPARISON: CT brain stroke dated 07/31/2021 4:02 AM FINDINGS: No evidence of acute or chronic hemorrhage is identified. No evidence of acute cerebral infarction is seen. There is mild cerebral volume loss with associated ex vacuo ventricular dilatation. No mass effect or midline shift is seen. Mild periventricular white matter FLAIR hyperintensities are nonspecific. There is a small focus of FLAIR hyperintensity adjacent to the right lateral ventricle anteriorly, (series 5, image 16 and series 11, image 19) which appears slightly projecting inside the ventricular but this appearance is likely due to partial volume averaging. The pituitary height measures approximately 3.4 mm suggesting a partially empty sella. The corpus callosum appears grossly unremarkable. The cerebellar tonsils are slightly low lying at or approximately 2 mm below the level of the foramen magnum. The posterior fossa, brainstem, and craniocervical junction appear otherwise grossly unremarkable. The optic nerve sheaths are slightly tortuous. Please correlate with fundus examination if clinically warranted. The visualized portions of the orbits appear otherwise grossly unremarkable. There is mild paranasal sinus disease. There is a mucous retention cyst in the left maxillary sinus, minimal opacification in the ethmoid air cells, and mild mucosal thickening in the remaining paranasal sinuses. The imaged mastoid air cells appear grossly clear. Normal flow voids are demonstrated in the carotid arteries and basilar artery. Mild degenerative changes of the cervical spine. The calvarium appears normal. Procedure Note Luz Elena Ortiz MD - 07/31/2021 MRI BRAIN WO CONTRAST DATE: 07/31/2021 6:43 AM EXAMINATION: Magnetic resonance imaging (MRI) of the brain withoutcontrast HISTORY: H53.2: Diplopia TECHNIQUE: MRI of the brain was performed without contrast according to standard protocol. COMPARISON: CT brain stroke dated 07/31/2021 4:02 AM FINDINGS: No evidence of acute or chronic hemorrhage is identified. No evidence of acute cerebral infarction is seen. There is mild cerebral volume losswith associated ex vacuo ventricular dilatation. No mass effect or midline shift is seen. Mild periventricular white matter FLAIR hyperintensities are nonspecific. There is a small focus of FLAIR hyperintensity adjacent to the right lateral ventricle anteriorly, (series 5, image 16 andseries 11, image 19) which appears slightly projecting inside the ventricularbut this appearance is likely due to partial volume averaging. The pituitary height measures approximately 3.4 mm suggesting a partially empty sella. The corpus callosum appears grossly unremarkable. The cerebellar tonsils are slightly low lying at or approximately 2 mm below the level of the foramen magnum. The posterior fossa, brainstem, and craniocervical junction appear otherwise grossly unremarkable. The optic nerve sheaths are slightly tortuous. Please correlate with fundus examination if clinically warranted. The visualized portions ofthe orbits appear otherwise grossly unremarkable. There is mild paranasal sinus disease. There is a mucous retention cyst in the left maxillary sinus, minimal opacification in the ethmoid air cells, and mild mucosal thickening in the remaining paranasal sinuses. The imaged mastoid air cells appear grossly clear. Normal flow voids are demonstrated in the carotid arteries and basilar artery. Mild degenerative changes of the cervical spine. The calvarium appears normal. IMPRESSION: 1.No evidence of restricted diffusion to suggest an acute infarction. Dictated by Celeste Gruber M.D. (business services vice president) This report was approved by Celeste Gruber on 07/31/2021 9:27 AM . I, Dr. LUZ ELENA ORTIZ have personally reviewed and interpreted this examination/study. This report was electronically signed by LUZ ELENA ORTIZ on07/31/2021 9:27 AM . Jeffy Angel MD MR ORDERABLES * EKG 12-LEAD (07/31/2021 4:25 AM CDT) Ventricular Rate 76 BPM [facility] MUSE Atrial Rate 76 BPM [facility] MUSE P-R Interval 172 ms [facility] MUSE QRS Duration ms 86 ms [facility] MUSE Q-T Interval ms 388 ms [facility] MUSE QTC Calculation (Bezet) 436 ms SL MUSE Calculated P [place] 64 degrees SL MUSE Calculated R [place] 3 degrees [facility] MUSE Calculated T [place] 32 degrees [facility] MUSE Interpretation EKG NORMAL SINUS RHYTHM LOW VOLTAGE QRS NONSPECIFIC T WAVE ABNORMALITY ABNORMAL ECG NO PREVIOUS ECGS AVAILABLE Confirmed by fellow Andreas Pastor ([id number]) on 08/01/2021 4:55:02 PM Confirmed by Larry Cho ([id number]) on 08/01/2021 5:55:04 PM [facility] MUSE 07/31/2021 4:25 AM CDT 08/01/2021 5:55 PM CDT Jeffy Angel MD ECG ORDERABLES [facility] MUSE * PT-INR [facility] (07/31/2021 4:16 AM CDT) PT 14.6 12.1 - 14.8 Seconds 07/31/2021 4:31 AM CDT [facility] INR 1.2 See Comment 07/31/2021 4:31 AM CDT [facility] Comment:The suggested therap eutic range for standard coumadin (warfarin) therapy is an INR of 2.0-3.0. For high-risk patients (Mechanical Mitral Valve Prosthesis, etc.), the suggested prophylactic therapeutic range is an INR of 2.5-3.5. Blood BLOOD SPECIMEN / Unknown Venipuncture / Unknown 07/31/2021 4:16 AM CDT 07/31/2021 4:18 AM CDT Jeffy Angel MD LAB - COAGULATION O RDERABLES [address] [address], [facility] [phone] * TROPONIN I (07/31/2021 4:16 AM CDT) Troponin I <0.010 <0.032 ng/mL 07/31/2021 4:42 AM T [facility] Blood BLOOD SPECIMEN / Unknown Venipuncture / Unknown 07/31/2021 4:16 AM CDT 07/31/2021 4:23 AM CDT Jeffy Angel MD LAB - CHEMISTRY ORD ERABLES Performing Organization Address City/[facility]/ZIP Co de Phone Number [address] [address], [facility] [phone] * (ABNORMAL) CBC W AUTO DIFFERENTIAL (07/31/2021 4:16 AM CDT) WBC 4.1 3.5 - 10.5 10? 3 /uL 07/31/2021 4:26 AM [facility] RBC 3.73(L) 3.80 - 5.20 10? 6 /uL 07/31/2021 4:26 AM [facility] Hemoglobin 11.6(L) 12.0 - 15.6 g/dL 07/31/2021 4:26 AM [facility] Hematocrit 34.7(L) 35.0 - 45.0 % 07/31/2021 4:26 AM [facility] MCV 93.0 80.7 - 98.3 fL 07/31/2021 4:26 AM [facility] MCH 31.1 26.7 - 34.0 pg 07/31/2021 4:26 AM [facility] MCHC 33.4 30.8 - 35.9 g/dL 07/31/2021 4:26 AM [facility] Platelet Count 139(L) 150 - 400 10? 3 /uL 07/31/2021 4:26 AM [facility] RDW-SD 43.3 36.0 - 50.0 fL 07/31/2021 4:26 AM [facility] RDW-CV 12.6 11.2 - 14.8 % 07/31/2021 4:26 AM [facility] MPV 8.9(L) 9.4 - 12.9 fL 07/31/2021 4:26 AM [facility] nRBC Absolute 0.00 0 10? 3 /uL 07/31/2021 4:26 AM [facility] nRBC Auto 0.0 0 /100 WBC 07/31/2021 4:26 AM [facility] Neutrophils % 49.9 35.0 - 70.0 % 07/31/2021 4:26 AM [facility] Lymphocytes % 24.0 20.0 - 43.0 % 07/31/2021 4:26 AM [facility] Monocytes % 17.0(H) 5.0 - 13.0 % 07/31/2021 4:26 AM [facility] Eosinophils % 7.7(H) 0.0 - 6.0 % 07/31/2021 4:26 AM [facility] Basophil % 1.2 0.0 - 2.0 % 07/31/2021 4:26 AM [facility] Neutrophils Absolute 2.0 1.6 - 7.0 10? 3 /uL 07/31/2021 4:26 AM [facility] Lymphocyte Absolute 1.0(L) 1.1 - 3.9 10? 3 /uL 07/31/2021 4:26 AM [facility] Monocytes Absolute 0.69 0.26 - 1.07 10? 3 /uL 07/31/2021 4:26 AM [facility] Eosinophils Absolute 0.31 0.00 - 0.47 10? 3 /uL 07/31/2021 4:26 AM [facility] Basophils Absolute 0.05 0.00 - 0.08 10? 3 /uL 07/31/2021 4:26 AM [facility] Immature Granulocytes % 0.2 0.0 - 1.0 % 07/31/2021 4:26 AM [facility] Immature Granulocytes Absolute 0.01 07/31/2021 4:26 AM [facility] Blood BLOOD SPECIMEN / Unknown Venipuncture / Unknown 07/31/2021 4:16 AM CDT 07/31/2021 4:19 AM CDT Jeffy Angel MD LAB - HEMATOLOGY OR DERABLES [facility] [address] [place] [address], [facility] [phone] * (ABNORMAL) COMPREHENSIVE METABOLIC PANEL (07/31/2021 4:16 AM CDT) BUN 14 7 - 26 mg/dL 07/31/2021 4:46 AM [facility] Creatinine 0.86 0.56 - 0.96 mg/dL 07/31/2021 4:46 AM [facility] Sodium 138 136 - 145 mmol/L 07/31/2021 4:46 AM [facility] Potassium 4.3 3.5 - 4.5 mmol/L 07/31/2021 4:46 AM [facility] Comment:Hemolysis detected i n this specimen. Hemolysis may cause false elevations in potassium leading to pseudohyperkalemia or masked hypokalemia. Recommend repeat testing if clinically indicated. Chloride 104 98 - 107 mmol/L 07/31/2021 4:46 AM [facility] CO2 23 22 - 29 mmol/L 07/31/2021 4:46 AM [facility] Glucose 94 70 - 115 mg/dL 07/31/2021 4:46 AM [facility] Calcium 8.2(L) 8.4 - 10.2 mg/dL 07/31/2021 4:46 AM [facility] Protein Total 6.3 6.0 - 8.3 g/dL 07/31/2021 4:46 AM [facility] Comment:Hemolysis detected i n this specimen. Hemolysis is known to cause elevations in this analyte. Caution should be exercised in the interpretation of this result. Recommend repeat testing if clinically indicated. Albumin 2.9(L) 3.4 - 5.0 g/dL 07/31/2021 4:46 AM [facility] Bilirubin Total 0.5 0.2 - 1.2 mg/dL 07/31/2021 4:46 AM [facility] Alkaline Phosphatase 76 40 - 150 U/L 07/31/2021 4:46 AM [facility] ALT 9 5 - 55 U/L 07/31/2021 4:46 AM [facility] AST 26 5 - 34 U/L 07/31/2021 4:46 AM [facility] Comment:Hemolysis detected i n this specimen. Hemolysis is known to cause elevations in this analyte. Caution should be exercised in the interpretation of this result. Recommend repeat testing if clinically indicated. Anion Gap 15 8 - 18 07/31/2021 4:46 AM [facility] BUN/Creatinine Ratio 16 7 - 23 05/05/2021 4:46 AM [facility] Osmolality Calculated 286 270 - 300 mOsm/kg 07/31/2021 4:46 AM [facility] Albumin/Globulin Ratio 0.9(L) 1.1 - 2.3 4:46 AM [facility] eGFR by CKD-EPI 77(L) >=90 mL/min/1. 73 m2 07/31/2021 4:46 AM [facility] Blood BLOOD SPECIMEN / Unknown Venipuncture / Unknown 07/31/2021 4:16 AM CDT 07/31/2021 4:23 AM CDT Jeffy Angel MD LAB - CHEMISTRY ORD ERABLES [facility] [address] [place] [address], [facility] [phone] * CT ANGIO BRAIN NECK STROKE (07/31/2021 4:11 AM CDT) Anatomical Region Laterality Modality Head Computed Tomogra phy 07/31/2021 11:3 9 AM CDT Impressions 07/31/2021 12:30 PM CDT IMPRESSION: 1.No abnormality anterior circulation and left vertebral artery in the head and neck. 2.Short segment absence of contrast in the right vertebral artery horizontal segment at C1 level with reconstitution in the posterior aspect of the horizontal segment. The intracranial segment demonstrates contrast. Overall, the right vertebral artery is developmentally small in caliber. 3.Groundglass opacities in the left upper lobe which may be due to pneumonia. This report was electronically signed by ACACIA ARREDONDO M.D. ??on 07/31/2021 12:30 PM . Narrative 07/31/2021 12:30 PM CDT EXAMINATION: CT angiography of the brain CT angiography of the neck HISTORY: Code Stroke TECHNIQUE: CT angiography of the head and neck was obtained after administration of 75 mL Isovue 370 intravenous contrast. Three dimensional postprocessing was performed by the technologist and sent to the workstation for review. NASCET criteria was utilized for evaluation of carotid stenosis. Additionally, Viz.AI was used for large vessel occlusion detection. COMPARISON: No prior vascular imaging is available for comparison at the time of this dictation. FINDINGS: CTA brain: *Right carotid system: Normal course and caliber of intracranial ICA. Patent and unremarkable ORTEGA and MCA. Normal anterior communicating artery. *Left carotid system: Normal course and caliber of intracranial ICA. Normal MCA. Aplastic A1. Segment. Normal A2 segment Normal anterior communicating artery. *Posterior circulation: Small caliber patent right vertebral artery and basilar artery. Unremarkable left vertebral artery. 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 Visualization of right posterior communicating artery. origin of left MACHINERY MOVER There is no aneurysm. ??The dural venous sinuses appear patent. CTA neck: *Aortic arch: Normal without ostial stenosis. *Right carotid system: Normal course and caliber. No calcified plaque. *Left carotid system: Normal course and caliber. No calcified plaque. *Vertebral arteries: Normal course and caliber of the left vertebral artery. Diminutive right vertebral artery which is patent from origin to C1-C2 level. There is short segment complete absence of contrast at C1 level with reconstitution in the posterior aspect of the horizontal segment. The intracranial segment demonstrates contrast. Patent PICA. No calcified plaque. Extravascular findings: *Groundglass opacities in the left upper lobe which may be due to pneumonia. *Degenerative changes of cervical spine with moderate spinal canal stenosis at C4-5 and C5-6. Procedure Note Acacia Arredondo MD - 07/31/2021 EXAMINATION: CT angiography of the brain CT angiography of the neck HISTORY: Code Stroke TECHNIQUE: CT angiography of the head and neck was obtained after administration of 75 mL Isovue 370 intravenous contrast. Threedimensional postprocessing was performed by the technologist and sent to the workstation for review. NASCET criteria was utilized for evaluation of carotid stenosis. Additionally, Viz.AI was used for large vesselocclusion detection. COMPARISON: No prior vascular imaging is available for comparison at the time of this dictation. FINDINGS: CTA brain: *Right carotid system: Normal course and caliber of intracranial ICA. Patent and unremarkable ORTEGA and MCA. Normal anterior communicatingartery. *Left carotid system: Normal course and caliber of intracranial ICA. Normal MCA. Aplastic A1. Segment. Normal A2 segment Normal anterior communicating artery. *Posterior circulation: Small caliber patent right vertebral artery and basilar artery. Unremarkable left vertebral artery. 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 Visualization of right posterior communicating artery. origin of left MACHINERY MOVER There is no aneurysm. The dural venous sinuses appear patent. CTA neck: *Aortic arch: Normal without ostial stenosis. *Right carotid system: Normal course and caliber. No calcified plaque. *Left carotid system: Normal course and caliber. No calcified plaque. *Vertebral arteries: Normal course and caliber of the left vertebral artery. Diminutive right vertebral artery which is patent from origin to C1-C2 level. There is short segment complete absence of contrast at C1 level with reconstitution in the posterior aspect of the horizontal segment. The intracranial segment demonstrates contrast. Patent PICA. No calcified plaque. Extravascular findings: *Groundglass opacities in the left upper lobe which may be due to pneumonia. *Degenerative changes of cervical spine with moderate spinal canal stenosis at C4-5 and C5-6. IMPRESSION: 1.No abnormality anterior circulation and left vertebral artery in the head and neck. 2.Short segment absence of contrast in the right vertebral artery horizontal segment at C1 level with reconstitution in the posterioraspect of the horizontal segment. The intracranial segment demonstratescontrast. Overall, the right vertebral artery is developmentally small in caliber. 3.Groundglass opacities in the left upper lobe which may be due to pneumonia. This report was electronically signed by ACACIA ARREDONDO M.D. on 07/31/2021 12:30 PM . Jeffy Angel MD CT ORDERABLES * CT BRAIN - Stroke (07/31/2021 4:10 AM CDT) Anatomical Region Laterality Modality Head Computed Tomogra phy 07/31/2021 7:05 AM CDT Impressions 07/31/2021 11:39 AM CDT IMPRESSION: No acute intracranial abnormality. These findings were discussed with the patient's care provider, Dr. Winkler by Dr. Reyes via telephone at 4:11 AM on 07/31/2021 with readback comprehension and verification. Report drafted by Rickey Valdez MD (market president). I, Dr. ACACIA ARREDONDO M.D. have personally reviewed and interpreted this examination/study. This report was electronically signed by ACACIA ARREDONDO M.D. ??on 07/31/2021 11:39 AM . Narrative 07/31/2021 11:39 AM CDT EXAMINATION: Computed tomography (CT) of the head without contrast HISTORY: Code Stroke TECHNIQUE: CT of the head was performed without contrast according to standard protocol. COMPARISON: No prior study is available for comparison at the time of this dictation. FINDINGS: Mild generalized cerebral volume loss is noted. There is no focal parenchymal abnormality. There is no CT evidence of acute infarct. There is no acute hemorrhage. There is no hydrocephalus, midline shift or extra-axial fluid collection. There is no significant opacification of the paranasal sinuses and tympanomastoid cavities. The orbits are unremarkable. There is no skull fracture. Procedure Note Acacia Arredondo MD - 07/31/2021 EXAMINATION: Computed tomography (CT) of the head without contrast HISTORY: Code Stroke TECHNIQUE: CT of the head was performed without contrast according to standard protocol. COMPARISON: No prior study is available for comparison at the time ofthis dictation. FINDINGS: Mild generalized cerebral volume loss is noted. There is no focal parenchymal abnormality. There is no CT evidence of acute infarct. There is no acute hemorrhage. There is no hydrocephalus, midline shiftor extra-axial fluid collection. There is no significant opacification of the paranasal sinuses and tympanomastoid cavities. The orbits are unremarkable. There is no skull fracture. IMPRESSION: No acute intracranial abnormality. These findings were discussed with the patient's care provider, Dr. Winkler by Dr. Reyes via telephone at 4:11 AM on 07/31/2021 with readback comprehension and verification. Report drafted by Rickey Valdez MD (market president). I, Dr. ACACIA ARREDONDO M.D. have personally reviewed and interpreted this examination/study. This report was electronically signed by ACACIA ARREDONDO M.D. on 07/31/2021 11:39 AM . Jeffy Angel MD CT ORDERABLES Care Teams Gas Station Supervisor Relationship Specialty Start Date End Date Bipin Santiago MD [address] [place] [address] PCP - General Internal Medicine 07/31/21
--- OUTSIDE RECORDS SUMMARY | 2024-03-22 04:44 | XMS_ITS | Encounter Summary ---
Author Organization [facility] Address [address] [place] [address] Care Team Providers Care Contingents Supervisor Name Role Phone Bipin Santiago MD Primary Care Provider [phone] Reason for Visit * Reason Comments Dizziness * Auth/Cert Specialty Diagnoses / Procedures Referred By Vidhya t Referred To Contact Referral ID Status Reason Start Date Expiration Date Visits Re quested Visits Authorized [id number] 1 1 Encounter Details Date Type Department Care Team (Late st Contact Info) Description 07/31/2021 3:52 AM CDT - 07/31/2021 3:12 PM CDT Emergency [facility] EMERGENCY DEPARTMENT [address] [place] [id number] Jeffy Angel MD [address] [place] [address] Da Garduno MD [address] [place] [address] Nnamdi Dong MD [facility] new address Diplopia (Primary Dx); Nystagmus Discharge Disposition: Home or Self Care Social History Tobacco Use Types Packs/Day Years Used Date Smoking Tobacco: Never Assessed Sex and Gender Information Value Date Recorded Sex Assigned at Not on file Gender Identity Not on file Sexual Orientation Not on file documented as of this encounter Last Filed Vital Signs Vital Sign Reading [...] - - Body Mass Index - - documented in this encounter Discharge Summaries * Lissa Curtis MD - 07/31/2021 12:07 PM CDT Physician Discharge Summary Patient ID: Yashira Heller [id number] 60 year old 1960 Admit date: 07/31/2021 Discharge date: 07/31/2021 Admitting Physician: Nnamdi Swartz MD Discharge Physician: Nnamdi Swartz MD Admission Diagnoses: Diplopia and Dizziness Discharge Diagnoses: Transient Episode of dizziness and amnesia Discharged Condition: fair Hospital Course: Yashira Heller is a 60 year old female with a history of breast cancer s/p double masectomy (2018) complicated by chronic pain and neuropathy, HTN, and hypothyroidism transferred from OSH on 07/31 for evaluation of possible stroke. Patient presented to OSH ER with 2 hour episode of reported dizziness, double vision, blank staring, and slow responses according to her son and as patient had no recollection of episode. At OSH NIHSS was 0. CTH showed no acute intracranial process and she was transferred to [facility] for further evaluation. On [facility] arrival NIHSS was 0. CTH showed no acute intracranial process and CTA showed dimmunitive right vertebral artery. MRI negative for acute stroke. All symptoms resolved and no infectious or metabolic abnormalities found. Neurological exam show no deficits. Orthostatic vitals obtained by resident physician and no abnormalities. Patient episode of transient dizziness may have been due to psychogenic v possible peripheral vertigo v other. Patient was told that if episode occurs again to come to ED and further cardiac workup will be obtained. Significant Diagnostic Studies: See hospital course Treatments: See hospital course Discharge Exam: Exam: Cortical Function Mental Status Awake, alert, follows commands Orientation Person, place, time, and situation Language Fluency intact, comprehension intact, repetition intact Visual Tran Intact bilaterally to confrontation Neglect No visual neglect noted, no tactile neglect noted ?? Cranial Nerves II Pupils 3 mm and bilaterally reactive to light. Fundoscopic exam not performed. VIII Hearing is intact bilaterally to finger rub. III/IV/ Extraocular muscles intact. ?Intermittent nystagmoid movements of both eyes, states diplopia when looking at far away objects IX/X Palate elevated symmetrically without phonation abnormalities noted. V Facial sensation symmetric to light touch and intact bilaterally. Corneal reflex not examined. XIHead turning and shoulder shrug are intact. VII No facial palsy noted. XII Tongue is midline with normal movements and no atrophy noted. Negative test of skew ? Positive head impulse test ?? Motor Function Movement No abnormalities noted Bulk No abnormalities noted Tone No abnormalities noted ? Proximal Upper Distal Upper Proximal Lower Distal Lower Right 5/5 5/5 5/5 5/5 Left 5/5 5/5 5/5 5/5 ?? Muscle Stretch Reflexes ?? BI TRI BR PAT ACH TOES Right 2 2 2 2 1 Down Left 2 2 2 2 1 Down ?? Sensory Light Touch Symmetric and intact bilaterally ?? Cerebellar ?? FNF Right Intact Left Intact ?? Gait Deferred Disposition: Home Patient Instructions: Current Discharge Medication List CONTINUE taking these medications which have NOT CHANGED Instructions Authorizing Provider amitriptyline 25 MG tablet Commonly known as: Elavil Take 50 mg by mouth at bedtime anastrozole 1 MG tablet Commonly known as: Arimidex Take 1 mg by mouth once daily buPROPion XL 24hr 300 MG tablet Commonly known as: Wellbutrin-XL Take 300 mg by mouth once daily Cholecalciferol 50 MCG (2000 UT) Take 2,000 Units by mouth once daily hydroCHLOROthiazide 25 MG tablet Commonly known as: Hydrodiuril Take 25 mg by mouth once daily levothyroxine 100 MCG tablet Commonly known as: Synthroid Take 100 mcg by mouth once daily meloxicam 15 MG tablet Commonly known as: Mobic Take 15 mg by mouth as needed metoprolol succinate XL 24hr 25 MG tablet Commonly known as: Toprol XL Take 25 mg by mouth once daily multivitamins capsule Take 1 capsule by mouth every morning Follow-up with primary care physician in 4 weeks as needed. Signed: Lissa Curtis MD 07/31/2021 12:08 PM documented in this encounter Discharge Instructions * Discharge Instructions* Lev Sandy MD - 07/31/2021 11:58 AM CDT Mrs. Heller, you came for evaluation to the hospital for an episode of double vision, altered awareness and dizziness which all resolved by the time of your arrival at [facility]. We did imaging to r/o brain bleed and stroke, all of which came back normal. We also evaluated you for any infectious or electrolyte abnormalities that can contribute to dizziness and episodes of altered awareness. Your EKG was also normal therefore no arrhythmia observed. Therefore we will be discharging you without any changes in your medications and urge you stay hydrated, eat well and have a good sleep hygiene. If an episode like this occurs again please seek help and will need a cardiology evaluation. documented in this encounter Medications at Time of Discharge Medication Sig Dispensed Refills Start Date End Date amitriptyline (ELAVIL) 25 MG tablet Take 50 mg by mouth at bedtime 06/22/2021 anastrozole (ARIMIDEX) 1 MG tablet Take 1 mg by mouth once daily 06/16/2021 buPROPion XL 24hr (WELLBUTRIN-XL) 300 MG tablet Take 300 mg by mouth once daily 06/29/2021 Cholecalciferol 50 MCG (2000 UT) Take 2,000 Units by mouth once daily hydroCHLOROthiazide (HYDRODIURIL) 25 MG tablet Take 25 mg by mouth once daily 09/12/2020 levothyroxine (SYNTHROID) 100 MCG tablet Take 100 mcg by mouth once daily 09/19/2020 meloxicam (MOBIC) 15 MG tablet Take 15 mg by mouth as needed metoprolol succinate XL 24hr (TOPROL XL) 25 MG tablet Take 25 mg by mouth once daily multivitamins (ONE A DAY) capsule Take 1 capsule by mouth every morning documented as of this encounter Progress Notes * Radha River PT - 07/31/2021 10:18 AM CDT [facility] Physical Medicine and Rehabilitation Physical Therapy Initial Evaluation Note Patient: Yashira Heller Med Record Number: [id number] Date of : 1960 Age: [age] year old PPE: PT wore procedural mask, goggles and gloves. Patient wore procedural mask outside of room. Co-evaluation this date due to unknown level of assist. PT/OT wore procedural masks, gloves, goggles. Patient wore mask outside of room. Discharge Recommendation: discharge from PT due to independent. Will complete orders. In addition to the 1:1 evaluation of the patient, additional eval time was spent completing the chart review prior to the assessment, completing the multidisciplinary plan of care and education plan post evaluation and communicating results of the eval to other treatment team members. Patient currently using no assistive device. OT contacted regarding patient status and/or discharge plan. Physician Orders: Evaluation and Treat PRECAUTIONS: none Activity Level as tolerated DIAGNOSIS: Patient Active Problem List: Diplopia Chemotherapy-induced peripheral neuropathy History of malignant neoplasm of breast Hypertension Hypothyroidism Dizziness Past Medical History: Diagnosis Date ??? Breast cancer SUBJECTIVE: No symptoms at all. PATIENT GOALS: home Home living: Type of Residence: Private Residence Lives with:: Spouse;Son Steps to Enter: 1 Home Structure: One Story Primary Bedroom: First Floor Primary Bathroom: First Floor Bathroom : Walk in Shower Equipment At Home: None Prior Function: Mobility: Ambulate-In Community;Independent;Without Assistive Device;Driving Fallen Within 6 Mos: No At start of therapy session, patient found on stretcher. Pain: Patient has 0/10 pain OBJECTIVE: General Appearance: Thin female in NAD Precautions: IV's: Peripheral line Skin, Incisions, Edema: Other: Vitals: (*Assess the 3 levels of oxygen saturations both for room air and 02 unless rest on room air is 88% or less). Rest BP: 121/78 (95) HR: 72 Sp02 Sp02 95% Room Air L O2 Ex/Gait/Activity Without 02 BP: HR: Sp02 Room Air Ex/Gait/Activity With 02 BP: HR: Sp02 L O2 Post Activity BP: 133/78 HR: Sp02 Sp02 L O2 Room Air Observations: No adverse symptoms MENTAL STATUS: Alert and oriented times 4 DIRECTION FOLLOWING: Able to follow multi-step commands 100% ROM: WFL LEONARDO LE STRENGTH: WFL LEONARDO LE SENSATION: no N/T TONE: normal NEGLECT: none noted COORDINATION: Good toe tapping B LE FUNCTIONAL MOBILITY Not Tested Not Applicable Independent Stand by Assist Minimal Moderate Maximum Dependent Rolling x Scooting x Supine to/from sit x Sit to/from Stand x Bed to/ chair x Observation: BALANCE: Sitting Static: good Dynamic: good Standing Static: good Dynamic: good Observation: GAIT: Weight Bearing: No restrictions Distance: 200 feet Device: gait belt and non-slip socks Assistance: Independent Balance: good Steps: NT good endurance Observation: STEADY GAIT ACTIVITY TOLERANCE: Patient's activity tolerance: good TREATMENT/INTERVENTIONS: evaluation and monitoring of vitals EDUCATION: While performing PT, Patient was instructed in:Functional mobility training/weight bearing status, Safety awareness/fall precaution and Discharge plan Patient demonstrated Good understanding of instructions given. Patient not applicable for education due to . INFORMED CONSENT TO TREATMENT: Plan of care including recommended therapy, goals and frequency, discussed with patient who understands and agrees to proceed. ASSESSMENT: Patient demonstrates independence/ baseline with mobility/exercise. No continued Physical Therapy indicated at this time. Modified Chenoa Score: Current Modified Chenoa Score: 0 Short Term Goals: Goal Formation With patient MET goal of independence with gait and transfers without device. Installation Supervisor Goal(s): Patient to be independent/baseline with functional mobility and self care and be able to safely discharge to prior level of care- met Equipment Issued: gait belt Plan: If patient is discharged from the facility, this note serves as a discharge summary if further physical therapy visits did not occur. Following therapy session, patient left with call light within reach, with family in room and on stretcher * Elsie Man OT - 07/31/2021 10:10 AM CDT [facility] Physical Medicine and Rehabilitation Occupational Therapy Initial Evaluation & Discharge Note Patient: Yashira Heller Med Record Number: [id number] Date of : 1960 Age: [age] year old Face Mask: YES (N95 + EYE PROTECTION + GLOVES) Tech: NO Discharge Recommendation: Patient should be able to return home when medically cleared by physicianteam. MORALES OT. INDEPENDENT. In addition to the 1:1 evaluation of the patient, additional eval time was spent completing the chart review prior to the assessment, completing the multidisciplinary plan of care and education plan post evaluation and communicating results of the eval to other treatment team members. Physician Orders: Evaluation and Treat Precautions: FALLS SAFETY DIAGNOSIS: Patient Active Problem List: Diplopia Chemotherapy-induced peripheral neuropathy History of malignant neoplasm of breast Hypertension Hypothyroidism Dizziness Past Medical History: Diagnosis Date ??? Breast cancer SUBJECTIVE: Found in bed and agreeable PATIENT GOALS: go home Home living: Type of Residence: Private Residence Lives with:: Spouse;Son Steps to Enter: 1 Home Structure: One Story Primary Bedroom: First Floor Primary Bathroom: First Floor Bathroom : Walk in Shower Equipment At Home: None Prior Function: Mobility: Ambulate-In Community;Independent;Without Assistive Device;Driving Fallen Within 6 Mos: No Have Help at Home?: Yes, there is help at home now How often is assistance provided?: as needed Level of Help Sufficient?: Yes Oxygen at Home: No Activity at Home: Active;Driving Vision: No impairment Hearing Exceptions: No impairment Who manages medications?: self At start of therapy session, patient found on stretcher and with no alarm . Pain: Patient has 0/10 pain in body Follow-up for pain: No follow-up for pain indicated and patient agreed to proceed with treatment OBJECTIVE: General Appearance: 60 yo CF In bed in NAD Precautions: IV's: Peripheral line Edema: None noted Vitals: (*Assess the 3 levels of oxygen saturations both for room air and 02 unless rest on room air is 88% or less). Rest BP: 121/78 (95) HR: 72 Sp02 ?? Sp02 95% Room Air ?? L O2 ? Ex/Gait/Activity Without 02 BP: ?? HR: ?? Sp02 ?? Room Air ?? Ex/Gait/Activity With 02 BP: ?? HR: ?? Sp02 ?? L O2 ?? Post Activity BP: 133/78 HR: ?? Sp02 ?? Sp02 ?? L O2 ?? Room Air ?? Observations: No adverse symptoms ?? Cognitive: A&Ox4; followed 100% of commands. Perceptual: WFL Upper extremity range of motion: WFL B UEs Upper extremity strength: 5/5 B UEs Tone: Normal Coordination: Normal Sensation: Normal Patient's activity tolerance: good Comments: FUNCTIONAL MOBILITY Not tested Independent Stand by Assist Minimal Moderate Maximum Dependent Rolling X Supine to/from sit X Sit to/from Standing X Bed to/from chair X Functional mobility of ambulation to sink/bathroom with: Complete independence w/out AD. A gait belt and non-slip socks were used for all out of bed mobility. Balance: Static Sitting: good Dynamic Sitting: good Static Standing: good Dynamic Standing: good Activities of Daily Living Feeding:NT Grooming/Bathing: Independent Upper Extremity Dressing: Independent Lower Extremity Dressing: Independent Toileting/Transfers: Independent Splint Issued/Checked: none TREATMENT / EDUCATION / EVALUATION: Purpose of Occupational Therapy evaluation explained. While performing mobility, exercise and self care, Patient was instructed in: Functional mobility training/weight bearing status, Energy conservation, Pulmonary education, Safety awareness/fall precaution, Home exercise program, Discharge plan and Self care training Presented to patient who demonstrates Good understanding of instructions given. INFORMED CONSENT TO TREATMENT: Plan of care including recommended therapy, goals and frequency, as well as potential risks and benefits of treatment/assessment explained to patient. Patient understands and agrees to proceed. ASSESSMENT: Patient demonstrated independence/ baseline with activities of daily living. No continued Occupational Therapy indicated at this time. Modified Chenoa Score: Current Modified Chenoa Score: 0 Nurse and PT contacted regarding patient status and/or discharge plan. Short Term Goals: Patient will perform grooming Independently Patient will perform lower extremity dressing Independently Patient will perform toileting Independently Installation Supervisor Goal: Patient to be independent/baseline with functional mobility and self care and be able to safely discharge to prior level of care If patient is discharged from the facility, this note serves as a discharge summary if further occupational therapy visits did not occur. Following therapy session, patient left in bed, with call light within reach, with family in room, with RN, fully aware and with RN/CP rehab cues written on white board. * Carlitos Peck SLP - 07/31/2021 10:00 AM CDT [facility] Department of Physical Medicine & Rehabilitation Progress Note Patient: Yashira Heller Med Record Number: [id number] Date of : 1960 Age: [age] year old TOOTH GRINDER consult received and acknowledged. Since placement of consult patient has passed nursing dysphagia screen and is currently on a PO diet. TOOTH GRINDER followed up with RN to inquire about diet tolerance and ask about any concerns regarding dysphagia. No ST deficits at this time. [facility] does not appear to be a candidate for TOOTH GRINDER services at this time, please reconsult if needed. Carlitos Kyle M.A., CCC-TOOTH GRINDER Speech Language Pathologist [phone] * Mart Cortez - 07/31/2021 6:57 AM CDT Stroke Progress Note Patient: Yashira Heller Room: [facility] Age: [age] year old Subjective: Yashira Heller is a 60 year old female with a past medical history of breast cancer s/p double mastectomy (2018) complicated by chronic pain and neuropathy, HTN, hypothyroidism, and depression who presents with acute onset diplopia and dizziness. These symptoms began last night when she was getting ready for bed. She originally presented to an OSH ER; NIHSS was 0 and CTH showed no evidence of acute intracranial process at that time. CTA showed diminished right vertebral artery. She was transferred to [facility] for further stroke evaluation/work up; NIHSS on arrival was 0. TNK was not administered due to low NIH. At Present Patient reports that onset of symptoms of diplopia and dizziness/complete loss of balance started around midnight. According to the family, she also had slurred speech. Patient was conscious during this time but has no recollection of the following events leading up to her arriving at OSH. She saysthat her symptoms resolved around the time she was admitted. She is not currently experiencing any symptoms except for transient visual disturbance that she describes as an occasional black flickering across her vision. It is not impacting her visual acuity and has otherwise returned to her baseline. Patient says she has been stress recently and sleeping later; she denies vertigo. She expresses interest in leaving soon so that she can go on her trip to [facility] for tomorrow. Objective: BP 126/79 Pulse 71 Temp 98 ??F (36.7 ??C) Resp 12 Wt 122 lb SpO2 97% Temp (30hrs) Max:98 ??F (36.7 ??C) Exam: General: Con - NAD, afebrile Heent - NCAT, MMM, anicteric Ext: No c/c/e, 2+ dpp, normal ROM Cortical Function Mental Status Awake, alert, follows commands Orientation Person, place, time, and situation Language Fluency intact, comprehension intact, repetition intact Visual Tran Intact bilaterally to confrontation Neglect No visual neglect noted, no tactile neglect noted Cranial Nerves II Pupils 6 mm and bilaterally reactive to light. Fundoscopic exam not performed. VIII Hearing is intact bilaterally to finger rub. III/IV/ Extraocular muscles intact. No diplopia, ptosis, nystagmus or convergence abnormalities noted. IX/X Palate elevated symmetrically without phonation abnormalities noted. V Facial sensation symmetric to light touch and intact bilaterally. Corneal reflex not examined. XIHead turning and shoulder shrug are intact. VII No facial palsy noted. XII Tongue is midline with normal movements and no atrophy noted. Motor Function Movement No abnormalities noted Bulk No abnormalities noted Tone No abnormalities noted Proximal Upper Distal Upper Proximal Lower Distal Lower Right 5/5 5/5 5/5 5/5 Left 5/5 5/5 5/5 5/5 Muscle Stretch Reflexes BI TRI BR PAT ACH TOES Right 2 2 2 2 2 Down Left 2 2 2 2 2 Down Sensory Light Touch Symmetric and intact bilaterally Noxious Stimuli Symmetric and intact bilaterally Temperature Not tested Cerebellar FNF ZIA Right Intact Intact Left Intact Intact Gait Deferred Imagin/3 - CTH shows no evidence of acute intracranial pathology 07/31 - CTA shows evidence of diminutive right vertebral artery 5 - MRI brain w/o contrast does not endorse hemorrhage or infarct Labs: Recent Results (from the past 24 hour(s)) CBC W AUTO DIFFERENTIAL Collection Time: 07/31/21 4:16 AM Result Value Ref Range WBC 4.1 3.5 - 10.5 10??3/uL RBC 3.73 (L) 3.80 - 5.20 10??6/uL Hemoglobin 11.6 (L) 12.0 - 15.6 g/dL Hematocrit 34.7 (L) 35.0 - 45.0 % MCV 93.0 80.7 - 98.3 fL MCH 31.1 26.7 - 34.0 pg MCHC 33.4 30.8 - 35.9 g/dL Platelet Count 139 (L) 150 - 400 10??3/uL RDW-SD 43.3 36.0 - 50.0 fL RDW-CV 12.6 11.2 - 14.8 % MPV 8.9 (L) 9.4 - 12.9 fL nRBC Absolute 0.00 0 10??3/uL nRBC Auto 0.0 0 /100 WBC Neutrophils % 49.9 35.0 - 70.0 % Lymphocytes % 24.0 20.0 - 43.0 % Monocytes % 17.0 (H) 5.0 - 13.0 % Eosinophils % 7.7 (H) 0.0 - 6.0 % Basophil % 1.2 0.0 - 2.0 % Neutrophils Absolute 2.0 1.6 - 7.0 10??3/uL Lymphocyte Absolute 1.0 (L) 1.1 - 3.9 10??3/uL Monocytes Absolute 0.69 0.26 - 1.07 10??3/uL Eosinophils Absolute 0.31 0.00 - 0.47 10??3/uL Basophils Absolute 0.05 0.00 - 0.08 10??3/uL Immature Granulocytes % 0.2 0.0 - 1.0 % Immature Granulocytes Absolute 0.01 COMPREHENSIVE METABOLIC PANEL Collection Time: 07/31/21 4:16 AM Result Value Ref Range BUN 14 7 - 26 mg/dL Creatinine 0.86 0.56 - 0.96 mg/dL Sodium 138 136 - 145 mmol/L Potassium 4.3 3.5 - 4.5 mmol/L Chloride 104 98 - 107 mmol/L CO2 23 22 - 29 mmol/L Glucose 94 70 - 115 mg/dL Calcium 8.2 (L) 8.4 - 10.2 mg/dL Protein Total 6.3 6.0 - 8.3 g/dL Albumin 2.9 (L) 3.4 - 5.0 g/dL Bilirubin Total 0.5 0.2 - 1.2 mg/dL Alkaline Phosphatase 76 40 - 150 U/L ALT 9 5 - 55 U/L AST 26 5 - 34 U/L Anion Gap 15 8 - 18 BUN/Creatinine Ratio 16 7 - 23 Osmolality Calculated 286 270 - 300 mOsm/kg Albumin/Globulin Ratio 0.9 (L) 1.1 - 2.3 eGFR by CKD-EPI 77 (L) >=90 mL/min/1.73 m2 PT-INR [facility] Collection Time: 07/31/21 4:16 AM Result Value Ref Range PT 14.6 12.1 - 14.8 Seconds INR 1.2 See Comment TROPONIN I Collection Time: 07/31/21 4:16 AM Result Value Ref Range Troponin I <0.010 <0.032 ng/mL EKG 12-LEAD Collection Time: 07/31/21 4:25 AM Result Value Ref Range Ventricular Rate 76 BPM Atrial Rate 76 BPM P-R Interval 172 ms QRS Duration ms 86 ms Q-T Interval ms 388 ms QTC Calculation (Bezet) 436 ms Calculated P [place] 64 degrees Calculated R [place] 3 degrees Calculated T [place] 32 degrees Interpretation EKG NORMAL SINUS RHYTHM LOW VOLTAGE QRS NONSPECIFIC T WAVE ABNORMALITY ABNORMAL ECG NO PREVIOUS ECGS AVAILABLE Assessment and Plan: Yashira Heller is a 60 year old female who presents with acute onset diplopia and dizziness. These visual changes combined with the loss of balance and ataxia could be explained by posterior circulation disease, affecting the visual cortex and cerebellum. However, CTH showed no evidence of intracranial hemorrhage and MRI did not show evidence of ischemic infarct, though CTA did endorse a diminutive right vertebral artery. In light of these imaging studies, it may be that her symptoms arenot vascular in origin and are instead the result of an inner ear pathology, such as benign paroxysmal positonal vertigo (BPPV). If that is the case, a trial of meclizine could benefit this patient. Such a diagnosis, however, fails to account for the patient's inability to remember these events andshe denies vertigo. A seizure would explain this loss of conscious awareness and focal symptoms, but there is no evidence of a post-ictal period and this seizure(s) would have to have been 4 hours induration, which would classify as status epilepticus and is highly unlikely. At this time, it is difficult to determine the exact etiology and mechanism of this patient's presentation. The most likely diagnosis given her current presentation and lack of significant imaging findings is a transient stress- induced conversion disorder. Likelihood of stroke is very low and further stroke workup is unlikely to yield additional findings; we will cancel orders for TTE study and aspirin 81mg. Given that the patient is now stable with no other complaints, she can be discharged today. # Diplopia # Dizziness - No evidence of stroke, no further work up at this time - Discontinue aspirin 81mg QD # HTN - Target BP <220/120 - PRN hydralazine and labetalol if above target - Hold home meds metoprolol succinate and HCTZ until discharge # History of breast cancer # Chronic pain - Continue anastrozole 1mg QD, amitriptyline 50 mcg Qhs, vitamin D3 10mcg QD # Hypothyroidism - Continue levothyroxine 100mcg QD # Depression - Continue bupropion XL 300mg QD Individual Modifiable Risk Factors Hypertension: yes Hyperlipidemia: no Diabetes: no Atrial Fibrillation: no Tobacco: no Inpatient Checklist: Lines: PIV Prophylaxis: Sub-q heparin Diet: Normal Activity: Activity as tolerated Code status: Full Code Disposition: Discharge today Discussed Assessment and Plan with Attending Physician, Dr. Iker Cortez M3 Student * Martina Jenkins RN - 07/31/2021 3:14 AM CDT Transfer Center Code Stroke Referring Facility Time Initial Call Started: 236 Referring Facility and Unit: [facility], Referring Provider: Dr. Carlitos Caba Referring Provider Specialty: Emergency Medicine Contact #: [phone] Time patient arrived to referring facility: [id number] Accepting Facility Accepting Provider: Dr. Garcia Accepting Provider Specialty: Emergency Medicine Time Provider Accepted: 0249 Accepting Facility: [facility] # to Call Report: [phone] Transportation Method of transport: Ground Who arranged transport: OSH Time EMS called: 0251 Transport priority: Time Critical ETA to pick-up: 0310 ETA of patient to arrive: 0348 Time patient left referring facility:[id number] Where is patient going on arrival: Emergency Department Testing on arrival (if any):CTAngio Transfer delay (if any):None Bed Assignment Time bed assigned: N/A - ED documented in this encounter H&P Notes * Janelle Winkler MD - 07/31/2021 4:01 AM CDT [facility] Stroke History and Physical Yashira Heller Age: [age] year old Date of : 1960 Date of Admission: 07/31/2021 Hospital Day: 0 Subjective COVID-19 Screening questionnaire for Code Stroke 1. Do you have a fever, cough, shortness of breath or other respiratory complaints? a. Yes b. No 2. Do you have nausea, vomiting, diarrhea or any other GI symptoms? a. Yes b. No 3. Have you recently traveled? (interstate or international) a. Yes b. No 4. Have you been around anyone who has been ill with similar symptoms? a. Yes b. No 5. Have you been in close contact with someone suspected or known to be positive for COVID-19? a. Yes b. No In addition to this list: Is this a young patient with few comorbidities that presents as an atypical candidate for acute stroke? N/A Patient is a 60 year old white female presenting with double vision and dizziness Date last known well: 07/31/2021 Time last known well: 0000 Blood Glucose: 101 Blood Pressure: 156/104 Timeline Code Stroke Paged 3:43 AM Arrival at [facility] ED 3:53 AM NIHSS Completed 3:58 AM First Imaging Slice 4:02 AM History of Present Illness Yashira Heller is a 60 year old female with a history of breast cancer s/p double masectomy (2018) complicated by chronic pain and neuropathy, HTN, and hypothyroidism transferred from OSH on 07/31 for evaluation of possible stroke. Patient presented to OSH ER with complaints of dizziness and double vision. Patient reports she was getting dressed for bed when symptoms came on suddenly. Describes vision as side to side and only present with looking at objects or people 10 feet away. Also reports ongoing feeling of off balance while walking which started when she woke up yesterday. Currently denies any headache, and does not often get headaches. At OSH NIHSS was 0. CTH showed no acute intracranial process and she was transferred to [facility] for further evaluation. On [facility] arrival NIHSS was 0 but she continued to endorse double vision. CTH showedno acute intracranial process and CTA showed dimmunitive right vertebral artery. After CT scan patient reported that symptoms had resolved. States she was meant to go to [place] later today. Denies any prior history of stroke. Does not smoke. Does not take aspirin or anticoagulation. Past Medical History: Diagnosis Date ??? Breast cancer Past Surgical History: Procedure Laterality Date ??? Mastectomy (Not in a hospital admission) Allergy No Known Allergies Family History No family history on file. Social History Social History Socioeconomic History ??? Marital status: Review of Systems General - Denies changes in weight or appetite ENT - Denies dental or swallowing difficulties Cardiac - Denies chest pain or palpitations Pulmonary - Denies shortness of breath, cough, or sputum production Gastrointestinal - Denies abdominal pain or changes in bowel habits Genitourinary - Denies changes in bladder habits Endocrine - Denies heat or cold intolerance Musculoskeletal - Denies myalgias or arthralgias Hematological - Denies history of malignancy or blood abnormalities Neurological - See HPI Psychiatric - Denies depression or mood difficulties Objective Patient Vitals for the past 8 hrs: BP Temp Pulse Resp SpO2 Weight 07/31/21 0430 -- -- -- -- -- 122 lb (55.3 kg) 07/31/21 0423 (!) 156/104 -- 77 12 100 % -- 07/31/21 0352 -- 98 ??F (36.7 ??C) -- -- -- -- Exam: Cortical Function Mental Status Awake, alert, follows commands Orientation Person, place, time, and situation Language Fluency intact, comprehension intact, repetition intact Visual Tran Intact bilaterally to confrontation Neglect No visual neglect noted, no tactile neglect noted Cranial Nerves II Pupils 3 mm and bilaterally reactive to light. Fundoscopic exam not performed. VIII Hearing is intact bilaterally to finger rub. III/IV/ Extraocular muscles intact. ?Intermittent nystagmoid movements of both eyes, states diplopia when looking at far away objects IX/X Palate elevated symmetrically without phonation abnormalities noted. V Facial sensation symmetric to light touch and intact bilaterally. Corneal reflex not examined. XIHead turning and shoulder shrug are intact. VII No facial palsy noted. XII Tongue is midline with normal movements and no atrophy noted. Negative test of skew ? Positive head impulse test Motor Function Movement No abnormalities noted Bulk No abnormalities noted Tone No abnormalities noted Proximal Upper Distal Upper Proximal Lower Distal Lower Right 5/5 5/5 5/5 5/5 Left 5/5 5/5 5/5 5/5 Muscle Stretch Reflexes BI TRI BR PAT ACH TOES Right 2 2 2 2 1 Down Left 2 2 2 2 1 Down Sensory Light Touch Symmetric and intact bilaterally Cerebellar FNF Right Intact Left Intact Gait Deferred NIHSS Stroke Scale: Interval: Baseline Time: 3:53 AM Person Administering Scale: Janelle Winkler MD 1a Level of consciousness 0 = Alert; keenly responsive. 1b LOC questions 0 = Answers both questions correctly. 1c LOC commands 0 = Performs both tasks correctly. 2 Best gaze 0 = Normal. 3 Visual 0 = No visual loss. 4 Facial Palsy 0 = Symmetrical movements. 5a Motor Left Arm 0 = No drift; limb holds 90 (or 45) degrees for full 10 seconds. 5b Motor Right Arm 0 = No drift; limb holds 90 (or 45) degrees for full 10 seconds. 6a Motor Left Leg 0 = No drift; leg holds 30 degree position for full 5 seconds. 6b Motor Right Leg 0 = No drift; leg holds 30 degree position for full 5 seconds. 7 Limb Ataxia 0 = Absent. 8 Sensory 0 = Normal; no sensory loss. 9 Best Language 0 = No aphasia; normal. 10 Dysarthria 0 = Normal. 11 Extinction/Inattention 0 = No abnormality. Total - 0 tPA - INCLUSION criteria for treatment 0-3 hours from last known well: 1. Age greater than or equal to 18 years old? Y 2. Clinical presentation consistent with acute ischemic stroke? Y 3. Head CT excludes ICH as primary cause of stroke symptoms? y tPA - EXCLUSION criteria for treatment 0-3 hours from last known well: 1. Current intracranial hemorrhage or subarachnoid hemorrhage? N 2. Active internal bleeding? N 3. Recent (<3 months) intracranial/intra-spinal surgery or serious head trauma? N 4. Presence of intracranial conditions that may increase the risk of bleeding (some neoplasms, AVMs, or aneurysms)? N 5. Bleeding diathesis? N 6. Current severe uncontrolled hypertension? N tPA - Additional EXCLUSION criteria for treatment 3-4.5 hours from last known well: 1. Age greater than 80 years old? N 2. NIHSS greater than 25? N 3. History of stroke and diabetes mellitus? N 4. Oral anticoagulant use regardless of INR? N tPA was not given due to: low NIHSS TNK Administered?: No IF NO - Contraindication: Stroke Severity Too Mild (Non-Disabling) Large Vessel Occlusion Suspected?: No Mechanical Thrombectomy - INCLUSION criteria: 1. Age greater than or equal to 18 years old? Y 2. Clinical presentation consistent with acute ischemic stroke? Y 3. Head CT excludes ICH as primary cause of stroke symptoms? Y Mechanical Thrombectomy - EXCLUSION criteria: 1. Evidence of proximal large vessel intracranial occlusion? N 2. Completed large infarction on neuroimaging? N 3. Baseline disability with modified Kisha score greater than or equal to 3? N 4. Patient and/or family refusal of treatment? N 5. Mild/non-disabling neurological deficits? N Mechanical Thrombectomy not considered due to: No LVO Assessment Yashira Heller is a 60 year old female presenting with sudden onset diplopia and associated dizziness. She was transferred to [facility] for further stroke evaluation due to concern for possible posterior circulation stroke. On exam displays some positive HINTs exam signs, although this could partially be skewed due to her attention. Plan #Diplopia - Patient will be admitted to the stroke service. - Stroke workup pending: MRI brain w/o contrast, TTE w/ bubble study - Stroke labs pending: HbA1C, Lipid Panel, Cardiac Enzymes x3, UA, and UDS - Secondary prevention: Aspirin 81 mg daily - NPO until passes swallow - q4h vitals and neurological checks - PT/OT/TOOTH GRINDER #HTN - Home medication: metoprolol succinate, HCTZ - SBP goal <220/120 - Holding home meds 2/2 permissive HTN - PRN hydralazine and labetalol for SBP >220 #History of Breast Cancer - Continue home anastrozole, amitriptyline, and vitamin D3 #Hypothyroidism - Continue home synthroid #Depression - Continue home wellbutrin Core Measures tPA administration: no Anti-thrombotic: yes Statin: pending DVT prophylaxis: yes Swallow Evaluation: pending PT/OT Evaluation: pending Smoking cessation; will newspaper delivery counselor: n/a Individual Modifiable Risk Factors Hypertension: yes Hyperlipidemia: no Diabetes: no Atrial Fibrillation: no Tobacco: no Patient discussed with stroke attending, Dr. Iker Winkler MD PGY-3, Neurology Resident Associated attestation - Nnamdi Dong MD - 07/31/2021 7:04 PM CDT Patient seen and examined with Resident. Please see note for further details. I was present for thekey portions of any procedures performed and always available. I confirm history, exam, assessment and plan with the following exceptions/additions: Altered mental status of unknown etiology likely stress related. documented in this encounter Consult Notes * Nahomi Yates RD/COOKIE - 07/31/2021 12:34 PM CDTAssociated Order(s): IP CONSULT TO NUTRITIONAL SERV Clinical Nutrition Brief Note Nutrition Recommendations: Continue current diet (regular) Comments: RD consulted per stroke protocol. Per chart review - possibility of stroke very low, further workup unlikely. RD to follow and provide education at next review if appropriate. Will follow up per clinical nutrition guidelines. No results for input(s): HGBA1C, A1C, [id number], EAG in the last [id number] hours. [id number] * Tana Michel RN - 07/31/2021 9:08 AM CDTAssociated Order(s): IP CONSULT TO PHYSICAL MED AND REHAB [facility] Rehab has initiated an evaluation per stroke protocol. Will continue to follow for medical stability and tolerance/participation in therapies. Thank you for the referral. Tana Michel RN, BSN Clinical Liaison [facility] [phone] documented in this encounter ED Notes * Karime Bazzi RN - 07/31/2021 2:58 PM CDT Discharge instructions reviewed with patient, understanding verbalized. Patient ambulated from ED independently with belongings and discharge instructions. * Da Garduno MD - 07/31/2021 6:14 AM CDT Patient signed out to me by Dr Angel at 6:14 AM Chief Complaint: No chief complaint on file. The patient is being evaluated for stroke At this time the patient's condition is fair Vitals: 07/31/21 1100 07/31/21 1200 07/31/21 1205 07/31/21 1300 BP: 124/84 133/85 108/75 Pulse: 70 84 76 Resp: 14 20 17 Temp: 98.2 ??F (36.8 ??C) SpO2: 96% 96% 97% Weight: There is no height or weight on file to calculate BMI. At this time the following studies are: Labs Reviewed CBC W AUTO DIFFERENTIAL - Abnormal; Notable for the following components: Result Value RBC 3.73 (*) Hemoglobin 11.6 (*) Hematocrit 34.7 (*) Platelet Count 139 (*) MPV 8.9 (*) Monocytes % 17.0 (*) Eosinophils % 7.7 (*) Lymphocyte Absolute 1.0 (*) All other components within normal limits COMPREHENSIVE METABOLIC PANEL - Abnormal; Notable for the following components: Calcium 8.2 (*) Albumin 2.9 (*) Albumin/Globulin Ratio 0.9 (*) eGFR by CKD-EPI 77 (*) All other components within normal limits PT-INR [facility] - Normal TROPONIN I - Normal TROPONIN I HEMOGLOBIN A1C URINALYSIS REFLEX TO MICROSCOPIC NO CULTURE URINE DRUG SCREEN IMMUNOASSAY TROPONIN I TYPE + SCREEN PANEL MRI BRAIN NON CONTRAST Final Result MRI BRAIN WO CONTRAST DATE: 07/31/2021 6:43 [...] acute infarction. Dictated by Celeste Gruber M.D. (vice president integrated) This report was approved by Celeste Gruber on 07/31/2021 9:27 AM . I, Dr. LUZ ELENA ORTIZ have personally reviewed and interpreted this examination/study. This report was electronically signed by LUZ ELENA ORTIZ on 07/31/2021 9:[address] ANGIO BRAIN NECK STROKE Final Result EXAMINATION: CT angiography of the brain CT [...] basilar artery. Unremarkable left vertebral artery. Patent director gift. Visualization of right posterior communicating artery. origin of left ADMINISTRATIVE SUPPORT SPECIALIST There is no aneurysm. The dural venous [...] ARREDONDO M.D. on 07/31/2021 12:[address] BRAIN - Stroke Final Result EXAMINATION: Computed tomography (CT) of the head [...] verification. Report drafted by Rickey Valdez MD (vice president & general manager [employer] [place]). IDr. ACACIA M.D. have personally reviewed and interpreted this examination/study. This report was electronically signed by ACACIA ARREDONDO M.D. on 07/31/2021 11:39 AM . No results found. Plan: admit to stroke for stroke. Bed pending Diagnosis: The primary encounter diagnosis was Diplopia. A diagnosis of Nystagmus was also pertinent to this visit. 2:18 PM: Patient seen by Neurology, who has seen MRI and believes patient is appropriate for discharge. 2:27 PM: I have reviewed her diagnostic findings and she has had an opportunity to ask me any questions she has about care, diagnosis and discharge plan. Patient is comfortable with the discharge plan. She will follow up as directed and will return to the ER if her condition worsens or she developsother urgent concerns. Disposition: Discharge By signing my name below, Maria Alejandra Cates attest that this documentation has been prepared under thedirection and in the presence of Dr. Garduno. Signed: Juan Diego Fields. * Jose Alfredo Diaz RN - 07/31/2021 4:13 AM CDT Bed: AC16 Expected date: Expected time: Means of arrival: Comments: CODE STROKE 0343 * Jeffy Angel MD - 07/31/2021 4:02 AM CDT Emergency Medicine Attending Note Patient seen as a team with the resident physician, Dr. Yossi Beatty. Interval History : No chief complaint on file. Yashira Heller is a 60 year old female BIBEMS with no significant past medical history presenting to the ED c/o double vision. Patient arrives to the ED as a code stroke. She notes that at 12:00 AM she became altered and family too her to an OSH. EMS notes NIH of 0 at OSH. Patient has double vision around 10 ft into visual field. EMS reports CT at OSH showed ICH. Per OSH record review, CT read shows no ICH. Patient also complains of dizziness and feeling off balance. Denies chest pain and SOB. No exacerbating or alleviating factors. The patient has no other complaints or modifying factors at thistime. Past Medical History: Diagnosis Date ??? Breast cancer Past Surgical History: Procedure Laterality Date ??? Mastectomy Social History Socioeconomic History ??? Marital status: Spouse name: Not on file ??? Number of children: Not on file ??? Years of education: Not on file ??? Highest education level: Not on file Occupational History ??? Not on file Tobacco Use ??? Smoking status: Not on file ??? Smokeless tobacco: Not on file Substance and Sexual Activity ??? Alcohol use: Not on file ??? Drug use: Not on file ??? Sexual activity: Not on file Other Topics Concern ??? Not on file Social History Narrative ??? Not on file Social Determinants of Health Financial Resource Strain: Not on file Food Insecurity: Not on file Transportation Needs: Not on file Physical Activity: Not on file Stress: Not on file Social Connections: Not on file Intimate Partner Violence: Not on file Housing Stability: Not on file No Known Allergies Review of Systems: (+) positive Review of Systems Constitutional: Negative for chills, diaphoresis and fever. HENT: Negative for congestion and nosebleeds. Eyes: Positive for double vision. Negative for photophobia and pain. Respiratory: Negative for cough, hemoptysis, sputum production, shortness of breath, wheezing and stridor. Cardiovascular: Negative for chest pain, palpitations, orthopnea and leg swelling. Gastrointestinal: Negative for abdominal pain, constipation, diarrhea, nausea and vomiting. Genitourinary: Negative for dysuria and frequency. Musculoskeletal: Negative for back pain and myalgias. Skin: Negative for rash. Neurological: Positive for dizziness. Negative for sensory change, focal weakness, loss of consciousness, weakness and headaches. Physical Exam Vitals: 07/31/21 0352 07/31/21 0423 07/31/21 0430 BP: (!) 156/104 Pulse: 77 Resp: 12 Temp: 98 ??F (36.7 ??C) SpO2: 100% Weight: 55.3 kg (122 lb) Physical Exam Constitutional: General: She is not in acute distress. Appearance: Normal appearance. She is not ill-appearing, toxic-appearing or diaphoretic. HENT: Head: Normocephalic and atraumatic. Nose: Nose normal. Mouth/Throat: Mouth: Mucous membranes are moist. Pharynx: Oropharynx is clear. Eyes: Pupils: Pupils are equal, round, and reactive to light. Cardiovascular: Rate and Rhythm: Normal rate and regular rhythm. Pulses: Normal pulses. Pulmonary: Effort: Pulmonary effort is normal. Breath sounds: Normal breath sounds. Abdominal: General: Abdomen is flat. There is no distension. Palpations: Abdomen is soft. Tenderness: There is no abdominal tenderness. There is no guarding. Musculoskeletal: General: No tenderness. Normal range of motion. Cervical back: Normal range of motion and neck supple. Skin: General: Skin is warm and dry. Neurological: General: No focal deficit present. Mental Status: She is alert and oriented to person, place, and time. Mental status is at baseline. Psychiatric: Mood and Affect: Mood normal. Behavior: Behavior normal. Medical Decision Making: Problem List: 1. Double vision 2. Dizziness - Ddx: ICH vs CVA vs TIA vs other - PLAN: stroke activation, CT, labs, urine studies, EKG, stroke consult see below for further orders/plan. Orders Placed This Encounter ??? CT BRAIN - Stroke ??? CT ANGIO BRAIN NECK STROKE ??? MRI BRAIN NON CONTRAST ??? CBC W AUTO DIFFERENTIAL ??? COMPREHENSIVE METABOLIC PANEL ??? PT-INR [facility] ??? TROPONIN I ??? TROPONIN I ??? BASIC METABOLIC PANEL (CALCIUM TOTAL) ??? CBC W/O DIFFERENTIAL ??? HEMOGLOBIN A1C ??? LIPID PROFILE ??? URINALYSIS REFLEX TO MICROSCOPIC NO CULTURE ??? URINE DRUG SCREEN IMMUNOASSAY ??? CONSULT TO NETWORK ANNOUNCER ??? CONSULT TO VASCULAR NEUROLOGY ??? IP CONSULT TO CASE MANAGEMENT ??? IP CONSULT TO NUTRITIONAL SERV ??? IP CONSULT TO NETWORK ANNOUNCER ??? CONSULT TO REHAB ??? EKG 12-LEAD ??? AND Linked Order Group ??? 0.9% NaCl injection 3 mL ??? 0.9% NaCl injection 1-10 mL ??? DISCONTD: iopamidol (Isovue 370) 76 % contrast ??? heparin injection 5,000 Units ??? OR Linked Order Group ??? aspirin tablet 325 mg ??? aspirin suppository 300 mg ??? OR Linked Order Group ??? aspirin tablet 325 mg ??? aspirin suppository 300 mg ??? acetaminophen (Tylenol) tablet 650 mg ??? amitriptyline (Elavil) tablet 50 mg ??? anastrozole (Arimidex) tablet 1 mg ??? buPROPion XL 24hr (Wellbutrin-XL) tablet 300 mg ??? vitamin D3 (Cholecalciferol) 10 MCG (400 UNIT) tablet 400 Units ??? levothyroxine (Synthroid) tablet 100 mcg ??? OR Linked Order Group ??? labetalol (Normodyne; Trandate) injection 10 mg ??? hydrALAZINE (Apresoline) injection 10 mg Data Review: (All Labs/Imaging/ECG, other diagnostics independently interpreted by me.) - MONITORING: The patient's Automotive Salesperson Rhythm was interpreted by me. The nurse monitoring showed sinus rhythm. The patient's Oxygen Saturation Monitor was interpreted by me. The reading was 100%. The patient was on room air at the time of the reading. This is interpreted as normal. - LABS: Labs Reviewed CBC W AUTO DIFFERENTIAL - Abnormal; Notable for the following components: Result Value RBC 3.73 (*) Hemoglobin 11.6 (*) Hematocrit 34.7 (*) Platelet Count 139 (*) MPV 8.9 (*) Monocytes % 17.0 (*) Eosinophils % 7.7 (*) Lymphocyte Absolute 1.0 (*) All other components within normal limits COMPREHENSIVE METABOLIC PANEL - Abnormal; Notable for the following components: Calcium 8.2 (*) Albumin 2.9 (*) Albumin/Globulin Ratio 0.9 (*) eGFR by CKD-EPI 77 (*) All other components within normal limits PT-INR [facility] - Normal TROPONIN I - Normal TROPONIN I HEMOGLOBIN A1C URINALYSIS REFLEX TO MICROSCOPIC NO CULTURE URINE DRUG SCREEN IMMUNOASSAY TYPE + SCREEN PANEL - IMAGING: CT ANGIO BRAIN NECK STROKE Preliminary Result CT BRAIN - Stroke (Results Pending) MRI BRAIN NON CONTRAST (Results Pending) No results found. - MEDS: Medications 0.9% NaCl injection 3 mL (has no administration in time range) And 0.9% NaCl injection 1-10 mL (has no administration in time range) heparin injection 5,000 Units (has no administration in time range) aspirin tablet 325 mg (has no administration in time range) Or aspirin suppository 300 mg (has no administration in time range) aspirin tablet 325 mg (has no administration in time range) Or aspirin suppository 300 mg (has no administration in time range) acetaminophen (Tylenol) tablet 650 mg (has no administration in time range) amitriptyline (Elavil) tablet 50 mg (has no administration in time range) anastrozole (Arimidex) tablet 1 mg (has no administration in time range) buPROPion XL 24hr (Wellbutrin-XL) tablet 300 mg (has no administration in time range) vitamin D3 (Cholecalciferol) 10 MCG (400 UNIT) tablet 400 Units (has no administration in time range) levothyroxine (Synthroid) tablet 100 mcg (has no administration in time range) labetalol (Normodyne; Trandate) injection 10 mg (has no administration in time range) Or hydrALAZINE (Apresoline) injection 10 mg (has no administration in time range) ED COURSE 3:52 AM -- Patient arrives by EMS. Stroke team at bedside. 4:15 AM -- Labs are unremarkable. CT shows no acute intracranial hemorrhage. 4:32 AM -- After discussion with Stroke, the patient will be admitted to their service for further management of care. -I have reviewed the diagnostic findings with the patient and they have had an opportunity to ask me any questions they have about care, diagnosis, and reason for admission. The patient states understanding and agrees to admission. 6:00 AM -- RADHA to Dr. Garduno pending bed available This patient was evaluated during the COVID-19 pandemic. Orders and Medicine administered during this encounter: Orders Placed This Encounter ??? CT BRAIN - Stroke ??? CT ANGIO BRAIN NECK STROKE ??? MRI BRAIN NON CONTRAST ??? CBC W AUTO DIFFERENTIAL ??? COMPREHENSIVE METABOLIC PANEL ??? PT-INR [facility] ??? TROPONIN I ??? TROPONIN I ??? BASIC METABOLIC PANEL (CALCIUM TOTAL) ??? CBC W/O DIFFERENTIAL ??? HEMOGLOBIN A1C ??? LIPID PROFILE ??? URINALYSIS REFLEX TO MICROSCOPIC NO CULTURE ??? URINE DRUG SCREEN IMMUNOASSAY ??? CONSULT TO NETWORK ANNOUNCER ??? CONSULT TO VASCULAR NEUROLOGY ??? IP CONSULT TO CASE MANAGEMENT ??? IP CONSULT TO NUTRITIONAL SERV ??? IP CONSULT TO NETWORK ANNOUNCER ??? CONSULT TO REHAB ??? EKG 12-LEAD ??? AND Linked Order Group ??? 0.9% NaCl injection 3 mL ??? 0.9% NaCl injection 1-10 mL ??? DISCONTD: iopamidol (Isovue 370) 76 % contrast ??? heparin injection 5,000 Units ??? OR Linked Order Group ??? aspirin tablet 325 mg ??? aspirin suppository 300 mg ??? OR Linked Order Group ??? aspirin tablet 325 mg ??? aspirin suppository 300 mg ??? acetaminophen (Tylenol) tablet 650 mg ??? amitriptyline (Elavil) tablet 50 mg ??? anastrozole (Arimidex) tablet 1 mg ??? buPROPion XL 24hr (Wellbutrin-XL) tablet 300 mg ??? vitamin D3 (Cholecalciferol) 10 MCG (400 UNIT) tablet 400 Units ??? levothyroxine (Synthroid) tablet 100 mcg ??? OR Linked Order Group ??? labetalol (Normodyne; Trandate) injection 10 mg ??? hydrALAZINE (Apresoline) injection 10 mg Medications 0.9% NaCl injection 3 mL (has no administration in time range) And 0.9% NaCl injection 1-10 mL (has no administration in time range) heparin injection 5,000 Units (has no administration in time range) aspirin tablet 325 mg (has no administration in time range) Or aspirin suppository 300 mg (has no administration in time range) aspirin tablet 325 mg (has no administration in time range) Or aspirin suppository 300 mg (has no administration in time range) acetaminophen (Tylenol) tablet 650 mg (has no administration in time range) amitriptyline (Elavil) tablet 50 mg (has no administration in time range) anastrozole (Arimidex) tablet 1 mg (has no administration in time range) buPROPion XL 24hr (Wellbutrin-XL) tablet 300 mg (has no administration in time range) vitamin D3 (Cholecalciferol) 10 MCG (400 UNIT) tablet 400 Units (has no administration in time range) levothyroxine (Synthroid) tablet 100 mcg (has no administration in time range) labetalol (Normodyne; Trandate) injection 10 mg (has no administration in time range) Or hydrALAZINE (Apresoline) injection 10 mg (has no administration in time range) Clinical Impression: 1. Diplopia 2. Nystagmus Disposition: Admit to Stroke RADHA to Dr. Garduno By signing my name below, I, Jessica Almeida, attest that this documentation has been prepared underthe direction and in the presence of Dr. Angel. Signed: Juan Diego Esteves. Date: 07/31/2021. I, Dr. Angel, personally performed the services described in this documentation. All medical record entries made by the scribe were at my direction and in my presence. I have reviewed the chart and agree that the record reflects my personal performance and is accurate and complete. documented in this encounter Plan of Treatment Not on file documented as of this encounter Procedures Procedure Name Priority Date/Time Associated Diagnosis Comments CARDIAC EKG ORDER 08/02/2021 10: 17 AM CDT MRI BRAIN WO CONTRAST STAT 07/31/2021 6:43 AM CDT Diplopia PT EVAL AND TREAT Routine 07/31/2021 4:5 3 AM CDT Diplopia EKG 12-LEAD STAT 07/31/2021 4:25 AM CDT Diplopia PT-INR [facility] STAT 07/31/2021 4:16 AM CDT TROPONIN I STAT 07/31/2021 4:16 AM CDT CBC W AUTO DIFFERENTIAL STAT 07/31/2021 4:16 AM CDT COMPREHENSIVE METABOLIC PANEL STAT 07/31/2021 4:[address] ANGIO BRAIN NECK STROKE STAT 07/31/2021 4:[address] BRAIN STROKE STAT 07/31/2021 4:10 AM CDT Diplopia documented in this encounter Results * CARDIAC EKG ORDER (08/02/2021 10:17 [...] acute infarction. Dictated by Celeste Gruber M.D. (vice president integrated) This report was approved ??by Celeste Gurber ?? on 07/31/2021 9:[address] LUZ ELENA CatesUD have personally reviewed and interpreted this examination/study. [...] acute infarction. Dictated by Celeste Gruber M.D. (vice president integrated) This report was approved by Celeste Gruber on 07/31/2021 9:27 AM . I, Dr. LUZ ELENA ORTIZ have personally reviewed and interpreted this examination/study. This report was electronically signed by LUZ ELENA ORTIZ on07/31/2021 9:27 AM . Jeffy Angel MD MR ORDERABLES * EKG 12-LEAD (07/31/2021 4:25 AM CDT) Ventricular Rate 76 BPM [facility] MUSE Atrial Rate 76 BPM [facility] MUSE P-R Interval 172 ms [facility]USE QRS Duration ms 86 ms [facility] Q-T Interval ms 388 ms [facility]USE QTC Calculation (Bezet) 436 ms [facility] MUSE Calculated P [place] 64 degrees [facility] MUSE Calculated R [place] 3 degrees [facility] MUSE Calculated T [place] 32 degrees [facility] MUSE Interpretation EKG NORMAL SINUS RHYTHM LOW VOLTAGE QRS NONSPECIFIC T WAVE ABNORMALITY ABNORMAL ECG NO PREVIOUS ECGS AVAILABLE Confirmed by fellow Andreas Pastor ([id number]) on 08/01/2021 4:55:02 PM Confirmed by Larry Cho ([id number]) on 08/01/2021 5:55:04 PM [facility] MUSE 07/31/2021 4:25 AM CDT 08/01/2021 5:55 PM CDT Jeffy Angel MD ECG ORDERABLES Performing Organization Address City/[facility]/ZIP Co de Phone Number [facility] MUSE * TROPONIN I (07/31/2021 4:16 AM CDT) Troponin I <0.010 <0.032 ng/mL 07/31/2021 4:42 AM CDT [facility] Blood BLOOD SPECIMEN / Unknown Venipuncture / Unknown 07/31/2021 4:16 AM CDT 07/31/2021 4:23 AM CDT Jeffy Angel MD LAB - CHEMISTRY ORD ERABLES Performing Organization Address [facility]/ZIP Co de Phone Number [address] [phone], [facility] [phone] * PT-INR [facility] (07/31/2021 4:16 AM CDT) PT 14.6 12.1 - 14.8 Seconds 07/31/2021 4:31 AM CDT [facility] INR 1.2 See Comment 07/31/2021 4:31 AM CDT [facility] Comment:The suggested therap eutic range for standard coumadin (warfarin) therapy is an INR of 2.0-3.0. For high-risk patients (Mechanical Mitral Valve Prosthesis, etc.), the suggested prophylactic therapeutic range is an INR of 2.5-3.5. Blood BLOOD SPECIMEN / Unknown Venipuncture / Unknown 07/31/2021 4:16 AM CDT 07/31/2021 4:18 AM CDT Jeffy Angel MD LAB - COAGULATION O RDERABLES [facility] [address] [place] [phone], [facility] [phone] * (ABNORMAL) COMPREHENSIVE METABOLIC PANEL (07/31/2021 4:16 AM CDT) BUN 14 7 - 26 mg/dL 07/31/2021 4:46 AM [facility] Creatinine 0.86 0.56 - 0.96 mg/dL 07/31/2021 4:46 AM [facility] Sodium 138 136 - 145 mmol/L 07/31/2021 4:46 AM [facility] Potassium 4.3 3.5 - 4.5 mmol/L 07/31/2021 4:46 AM [facility] Comment:Hemolysis detected i n this specimen. Hemolysis may cause false elevations in potassium leading to pseudohyperkalemia or masked hypokalemia. Recommend repeat testing if clinically indicated. Chloride 104 98 - 107 mmol/L 07/31/2021 4:46 AM [facility] CO2 23 22 - 29 mmol/L 07/31/2021 4:46 AM [facility] Glucose 94 70 - 115 mg/dL 07/31/2021 4:46 AM [facility] Calcium 8.2(L) 8.4 - 10.2 mg/dL 07/31/2021 4:46 AM [facility] Protein Total 6.3 6.0 - 8.3 g/dL 07/31/2021 4:46 AM [facility] Comment:Hemolysis detected i n this specimen. Hemolysis is known to cause elevations in this analyte. Caution should be exercised in the interpretation of this result. Recommend repeat testing if clinically indicated. Albumin 2.9(L) 3.4 - 5.0 g/dL 07/31/2021 4:46 AM [facility] Bilirubin Total 0.5 0.2 - 1.2 mg/dL 07/31/2021 4:46 AM [facility] Alkaline Phosphatase 76 40 - 150 U/L 07/31/2021 4:46 AM [facility] ALT 9 5 - 55 U/L 07/31/2021 4:46 AM [facility] AST 26 5 - 34 U/L 07/31/2021 4:46 AM [facility] Comment:Hemolysis detected i n this specimen. Hemolysis is known to cause elevations in this analyte. Caution should be exercised in the interpretation of this result. Recommend repeat testing if clinically indicated. Anion Gap 15 8 - 18 07/31/2021 4:46 AM [facility] BUN/Creatinine Ratio 16 7 - 23 05/05/2021 4:46 AM [facility] Osmolality Calculated 286 270 - 300 mOsm/kg 07/31/2021 4:46 AM [facility] Albumin/Globulin Ratio 0.9(L) 1.1 - 2.3 4:46 AM [facility] eGFR by CKD-EPI 77(L) >=90 mL/min/1. 73 m2 07/31/2021 4:46 AM [facility] Blood BLOOD SPECIMEN / Unknown Venipuncture / Unknown 07/31/2021 4:16 AM CDT 07/31/2021 4:23 AM T Jeffy Angel MD LAB - CHEMISTRY ORD ERABLES [facility] [address] [place] [phone], [facility] [phone] * (ABNORMAL) CBC W AUTO DIFFERENTIAL (07/31/2021 4:16 AM CDT) WBC 4.1 3.5 - 10.5 10? 3 /uL 07/31/2021 4:26 AM [facility] RBC 3.73(L) 3.80 - 5.20 10? 6 /uL 07/31/2021 4:26 AM [facility] Hemoglobin 11.6(L) 12.0 - 15.6 g/dL 07/31/2021 4:26 AM [facility] Hematocrit 34.7(L) 35.0 - 45.0 % 07/31/2021 4:26 AM [facility] MCV 93.0 80.7 - 98.3 fL 07/31/2021 4:26 AM [facility] MCH 31.1 26.7 - 34.0 pg 07/31/2021 4:26 AM [facility] MCHC 33.4 30.8 - 35.9 g/dL 07/31/2021 4:26 AM [facility] Platelet Count 139(L) 150 - 400 10? 3 /uL 07/31/2021 4:26 AM [facility] RDW-SD 43.3 36.0 - 50.0 fL 07/31/2021 4:26 AM [facility] RDW-CV 12.6 11.2 - 14.8 % 07/31/2021 4:26 AM [facility] MPV 8.9(L) 9.4 - 12.9 fL 07/31/2021 4:26 AM [facility] nRBC Absolute 0.00 0 10? 3 /uL 07/31/2021 4:26 AM [facility] nRBC Auto 0.0 0 /100 WBC 07/31/2021 4:26 AM [facility] Neutrophils % 49.9 35.0 - 70.0 % 07/31/2021 4:26 AM [facility] Lymphocytes % 24.0 20.0 - 43.0 % 07/31/2021 4:26 AM [facility] Monocytes % 17.0(H) 5.0 - 13.0 % 07/31/2021 4:26 AM [facility] Eosinophils % 7.7(H) 0.0 - 6.0 % 07/31/2021 4:26 AM [facility] Basophil % 1.2 0.0 - 2.0 % 07/31/2021 4:26 AM [facility] Neutrophils Absolute 2.0 1.6 - 7.0 10? 3 /uL 07/31/2021 4:26 AM [facility] Lymphocyte Absolute 1.0(L) 1.1 - 3.9 10? 3 /uL 07/31/2021 4:26 AM CDT [facility] Monocytes Absolute 0.69 0.26 - 1.07 10? 3 /uL 07/31/2021 4:26 AM CDT [facility] Eosinophils Absolute 0.31 0.00 - 0.47 10? 3 /uL 07/31/2021 4:26 AM CDT [facility] Basophils Absolute 0.05 0.00 - 0.08 10? 3 /uL 07/31/2021 4:26 AM CDT [facility] Immature Granulocytes % 0.2 0.0 - 1.0 % 07/31/2021 4:26 AM CDT [facility] Immature Granulocytes Absolute 0.01 07/31/2021 4:26 AM CDT [facility] Blood BLOOD SPECIMEN / Unknown Venipuncture / Unknown 07/31/2021 4:16 AM CDT 07/31/2021 4:19 AM CDT Jeffy Angel MD LAB - HEMATOLOGY OR DERABLES Performing Organization Address [facility] Co de Phone Number [facility] [address] [place] [phone] [phone] * CT ANGIO BRAIN NECK STROKE (07/31/2021 [...] basilar artery. Unremarkable left vertebral artery. Patent director gift. Visualization of right posterior communicating artery. origin of left ADMINISTRATIVE SUPPORT SPECIALIST There is no aneurysm. ??The dural venous [...] basilar artery. Unremarkable left vertebral artery. Patent director gift. Visualization of right posterior communicating artery. origin of left ADMINISTRATIVE SUPPORT SPECIALIST There is no aneurysm. The dural venous [...] verification. Report drafted by Rickey Valdez MD (vice president & general manager [employer] [place]). I, Dr. ACACIA ARREDONDO M.D. have personally [...] verification. Report drafted by Rickey Valdez MD (vice president & general manager [employer] [place]). I, Dr. ACACIA ARREDONDO M.D. have personally reviewed and interpreted this examination/study. This report was electronically signed by ACACIA ARREDONDO M.D. on 07/31/2021 11:39 AM . Jeffy Angel MD CT ORDERABLES documented in this encounter Visit Diagnoses Diagnosis Diplopia- Primary Diplopia Nystagmus Nystagmus, unspecified Hypertension Unspecified essential hypertension Hypothyroidism Unspecified hypothyroidism Dizziness Dizziness and giddiness documented in this encounter Administered Medications Inactive Administered Medications - up to 3 most recent administrations Medication Order MAR Action Action Date Dose Rate Site 0.9% NaCl injection 1-10 mL 1-10 mL, Intracatheter, PRN, Other, peripheral line flush, Starting on Fri07/31/21 at 0343, Until Fri07/31/21 at 1617, Flush peripheral IV catheter with 1-10 mL of normal saline before and after medications and prn to clear blood from the line or to verify patency. 0.9% NaCl injection 3 mL 3 mL, Intracatheter, EVERY 8 HOURS, First dose on Fri07/31/21 at 0600, Until Discontinued, Flush peripheral IV catheter with 3 mL of normal saline every 8 hours. $ Given 07/31/2021 6:18 AM CDT 3 mL acetaminophen (Tylenol) tablet 650 mg 650 mg, Oral, EVERY 4 HOURS PRN, Mild Pain, for temperature greater than 100.4 F / 38 C, Starting on Fri07/31/21 at 0452, Until Fri07/31/21 at 1617, Patient preference for lesser PRN pain meds may be honored when the patient requests a less strong medication, a lower dose, or a less intrusive route of administration when the lesser drug, dose and route have been ordered for the patient. This patient request must be documented in the MAR. anastrozole (Arimidex) tablet 1 mg 1 mg, Oral, DAILY, First dose on Fri07/31/21 at 0900, Until Discontinued $ Given 07/31/2021 10:08 AM CDT 1 mg aspirin tablet 325 mg 325 mg, Oral, ONCE, 1 dose, On Fri07/31/21 at 0515 $ Given 07/31/2021 6:17 AM CDT 325 mg buPROPion XL 24hr (Wellbutrin-XL) tablet 300 mg 300 mg, Oral, DAILY, First dose on Fri07/31/21 at 0900, Until Discontinued, Do not crush, chew, or cut in half. $ Given 07/31/2021 10:08 AM CDT 300 mg heparin injection 5,000 Units 5,000 Units, Subcutaneous, EVERY 8 HOURS, First dose on Fri07/31/21 at 0600, Until Discontinued $ Given 07/31/2021 6:18 AM CDT 5,000 Units Abd Right Lower Quadrant hydrALAZINE (Apresoline) injection 10 mg 10 mg, Intravenous, EVERY 10 MIN PRN, SBP >220 if HR <70, Starting on Fri07/31/21 at 0519, Until Fri07/31/21 at 1617 iopamidol (Isovue 370) 76 % contrast Intravenous, CONTRAST ONCE, Starting on Fri07/31/21 at 0401, Until Fri07/31/21 at 0517 $ Given - Contrast 07/31/2021 4:03 AM CDT 85 mL labetalol (Normodyne; Trandate) injection 10 mg 10 mg, Intravenous, EVERY 10 MIN PRN, SBP >220 if HR >70, Starting on Fri07/31/21 at 0519, Until Fri07/31/21 at 1617, Max IV dose is 300mg/24 hours. levothyroxine (Synthroid) tablet 100 mcg 100 mcg, Oral, DAILY, First dose on Fri07/31/21 at 0900, Until Discontinued, Take in the morning on an empty stomach. Do not give within 4 hours of antacids, iron or calcium supplements. $ Given 07/31/2021 10:08 AM CDT 100 mcg documented in this encounter Active and Recently Administered Medications Times are shown in CDT. Scheduled Medication Order 07/29/2021 07/30/2021 07/31/2021 0.9% NaCl injection 3 mL(Linked Group 1) 3 mL, Intracatheter, EVERY 8 HOURS, First dose on Fri07/31/21 at 0600, Until Discontinued, Flush peripheral IV catheter with 3 mL of normal saline every 8 hours. 0618 ($ Given - Prov ider: Mary Rivera RN)1400 (Due) amitriptyline (Elavil) tablet 50 mg 50 mg, Oral, AT BEDTIME, First dose on Fri07/31/21 at 2100, Until Discontinued anastrozole (Arimidex) tablet 1 mg 1 mg, Oral, DAILY, First dose on Fri07/31/21 at 0900, Until Discontinued 1008 ($ Given - Prov ider: Karime Bazzi RN) aspirin tablet 325 mg (COMPLETED)(Linked Group 2) 325 mg, Oral, ONCE, 1 dose, On Fri07/31/21 at 0515 0617 ($ Given - Prov ider: Mary Rivera RN) buPROPion XL 24hr (Wellbutrin-XL) tablet 300 mg 300 mg, Oral, DAILY, First dose on Fri07/31/21 at 0900, Until Discontinued, Do not crush, chew, or cut in half. 1008 ($ Given - Prov ider: Karime Bazzi RN) heparin injection 5,000 Units 5,000 Units, Subcutaneous, EVERY 8 HOURS, First dose on Fri07/31/21 at 0600, Until Discontinued 0618 ($ Given - Prov ider: Mary Rivera RN)1400 (Due) iopamidol (Isovue 370) 76 % contrast (CANCELED) Intravenous, CONTRAST ONCE, Starting on Fri07/31/21 at 0401, Until Fri07/31/21 at 0517 0403 ($ Given - Cont rast - Provider: Jas Marrufo, RT(R)CT) levothyroxine (Synthroid) tablet 100 mcg 100 mcg, Oral, DAILY, First dose on Fri07/31/21 at 0900, Until Discontinued, Take in the morning on an empty stomach. Do not give within 4 hours of antacids, iron or calcium supplements. 1008 ($ Given - Prov ider: Karime Bazzi RN) vitamin D3 (Cholecalciferol) 10 MCG (400 UNIT) tablet 400 Units 400 Units, Oral, DAILY, First dose on Fri07/31/21 at 0900, Until Discontinued, 400 units = 10 mcg 1008 (Not Administer ed - Provider: Karime Bazzi RN - Reason: Refused-Patient - Comment: I only take them every other week, and I just took one. ) PRN Medication Order 07/29/2021 07/30/2021 07/31/2021 0.9% NaCl injection 1-10 mL(Linked Group 1) 1-10 mL, Intracatheter, PRN, Other, peripheral line flush, Starting on Fri07/31/21 at 0343, Until Fri07/31/21 at 1617, Flush peripheral IV catheter with 1-10 mL of normal saline before and after medications and prn to clear blood from the line or to verify patency. acetaminophen (Tylenol) tablet 650 mg 650 mg, Oral, EVERY 4 HOURS PRN, Mild Pain, for temperature greater than 100.4 F / 38 C, Starting on Fri07/31/21 at 0452, Until Fri07/31/21 at 1616, Patient preference for lesser PRN pain meds may be honored when the patient requests a less strong medication, a lower dose, or a less intrusive route of administration when the lesser drug, dose and route have been ordered for the patient. This patient request must be documented in the MAR. hydrALAZINE (Apresoline) injection 10 mg(Linked Group 3) 10 mg, Intravenous, EVERY 10 MIN PRN, SBP >220 if HR <70, Starting on Fri07/31/21 at 0519, Until Fri07/31/21 at 1616 labetalol (Normodyne; Trandate) injection 10 mg(Linked Group 3) 10 mg, Intravenous, EVERY 10 MIN PRN, SBP >220 if HR >70, Starting on Fri07/31/21 at 0519, Until Fri07/31/21 at 1616, Max IV dose is 300mg/24 hours. Linked Groups Order Group 1: SALINE LOCK, INSERT AND MAINTAIN (CANCELED) Routine, CONTINUOUS, Starting on Fri07/31/21 at 0345, Until Specified, New collection And 0.9% NaCl injection 3 mLJump to med 3 mL, Intracatheter, EVERY 8 HOURS, First dose on Fri07/31/21 at 0600, Until Discontinued, Flush peripheral IV catheter with 3 mL of normal saline every 8 hours. And 0.9% NaCl injection 1-10 mLJump to med 1-10 mL, Intracatheter, PRN, Other, peripheral line flush, Starting on Fri07/31/21 at 0343, Until Fri07/31/21 at 1616, Flush peripheral IV catheter with 1-10 mL of normal saline before and after medications and prn to clear blood from the line or to verify patency. Group 2: aspirin tablet 325 mg (COMPLETED)Jump to med 325 mg, Oral, ONCE, 1 dose, On Fri07/31/21 at 0515 Or aspirin suppository 300 mg (COMPLETED) 300 mg, Rectal, ONCE, 1 dose, On Fri07/31/21 at 0515, May give rectally if unable to take orally. Group 3: labetalol (Normodyne; Trandate) injection 10 mgJump to med 10 mg, Intravenous, EVERY 10 MIN PRN, SBP >220 if HR >70, Starting on Fri07/31/21 at 0519, Until Fri07/31/21 at 1617, Max IV dose is 300mg/24 hours. Or hydrALAZINE (Apresoline) injection 10 mgJump to med 10 mg, Intravenous, EVERY 10 MIN PRN, SBP >220 if HR <70, Starting on Fri07/31/21 at 0519, Until Fri07/31/21 at 1617 documented in this encounter Care Teams Contingents Supervisor Relationship Specialty Start Date End Date Bipin Santiago MD [address] [place] [phone] PCP - General Internal Medicine 07/31/21 documented as of this encounter
== END 2024-03-15 09:23 | disposition home or self-care (01) ==
LOC: ANHGOSHLAB 09:23
PROVIDERS: PCP Family Medicine; Visit Provider Family Medicine
DX: E03.9 Hypothyroidism, unspecified (principal)
CPT/HCPCS: 36415; 84439; 84443

== ENCOUNTER 2024-10-21 09:58 | Outpatient (CLI) | payer BC, SELFPAY ==
--- OUTSIDE RECORDS SUMMARY | 2024-10-21 10:00 | XMS_ITS | Clinical Summary ---
Author Organization [facility] [employer] Address [address] [place] [address] Care Team Providers Care Paper Making Machine Operator Name Role Phone Bipin Santiago MD Primary Care Provider [phone] Source Comments [facility] [employer],non-owned Affiliates and Associated Physician Practices is amultiple site organization consisting of ambulatory clinics and hospital sitesin [place], [place], [place] and [place]. This disclosure is being madepursuant to the Care Everywhere program and may not contain all information available regarding this patient. Last updated 17.[facility] [employer] Allergies No known active allergies Medications * Be aware that medications may not be up to date on this document. Alwaysverify current medications with the patient. amitriptyline (ELAVIL) 25 MG tablet Take 50 [...] mcg by mouth once daily 09/19/2020 Active hydroCHLOROthia zide (HYDRODIURIL) 25 MG tablet Take 25 mg [...] malignant neoplasm of breast 03/18/20 17 Immunizations Immunization Administration Dates Next Due INFLUENZA VACCINE 01/29/2017 INFLUENZA VACCINE, CELL CULT URE, QUADR. (FLUCELVAX QUADRIVALENT; 6MO+) (CCIIV4) 01/17/2020,01/08/2019 TDAP (7yrs+) 11/01/2015 Social History Tobacco Use Types Packs/Day Years Used Date Smoking Tobacco: Never Assessed Comments Unknown Sex and Gender Information Value Date Recorded Sex Assigned at Not on file Legal Sex Female 3:12 AM CDT Gender Identity Not on file Sexual Orientation Not on file Last Filed Vital Signs Vital Sign Reading Time Taken Comments Blood Pressure 111/61 07/31/2021 2:50 PM CDT Pulse 76 07/31/2021 2:50 PM CDT Temperature 36.8 C (98.2 F) 07/31/2021 12:05 PM CDT Respiratory Rate 15 07/31/2021 2:50 PM CDT Oxygen Saturation 98% 07/31/2021 2:50 PM CDT Inhaled Oxygen Concentration - - Weight 55.3 kg (122 lb) 07/31/2021 4:30 AM CDT Height - - Body Mass Index - - Plan of Treatment Health Maintenance Due Date Last Done Comments COLON MONITORING 1960 COLONOSCOPY - COLON CA SCREENING 1960 CT COLONOGRAPHY - COLON CA SCREENING 1960 FIT - COLON CA SCREENING 1960 FLEX SIG - COLON CA SCREENING 1960 LIPID TESTING 1960 MAMMOGRAM 1960 HIV SCREENING 11/14/1975 HEPATITIS C SCREENING 11/09/1978 PNEUMOCOCCAL VACCINE 50+ (1 of 1 - PCV) 2010 ZOSTER VACCINE (1 of 2) 2010 COLOGUARD (AGES 45-75) - COL ON CA SCREENING 03/28/2023 03/28/2020 Colorectal Cancer Screening 03/28/2023 COVID-19 VACCINE ( - 2023-2 5 season) 2023 DEPRESSION SCREENING 03/31/2024 INFLUENZA VACCINE (#1) 2024 , 01/08/2019, 01/29/2017 DTAP/TDAP/TD VACCINES (2 - T [...] patient's age to complete this topic MENINGOCOCCAL (Group B) VACCINE SHARED DECISION-MAKING Aged Out No longer eligible based on patient's age to complete this topic MENINGOCOCCAL GROUPS A/C/Y/W VACCINE Aged Out No longer eligible b ased on patient's age to complete this topic Insurance [facility] C[facility] Advance Directives * Full Code (Latest Code Status on File) Date Activated Date Inactivated Comments 07/31/2021 4:53 AM 07/31/2021 4:22 PM Care Teams Paper Making Machine Operator Relationship Specialty Start Date End Date Bipin Santiago MD [address] [place] [phone] PCP - General Internal Medicine 07/31/21
--- OUTSIDE RECORDS SUMMARY | 2024-10-21 10:00 | XMS_ITS | Encounter Summary ---
Author Organization [facility] Address 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
--- OUTSIDE RECORDS SUMMARY | 2024-10-21 10:00 | XMS_ITS | Clinical Summary ---
Author Organization [facility] Address [address] 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
[2024-10-21 13:05] LABS: Hematocrit 41.7 % (37.0-47.0); Hemoglobin 13.6 g/dL (12.0-15.0); Immature Granulocyte Percent A 0.4 % (0-0.5); Lymphocytes Absolute Auto 1.18 K/mm3 (0.9-3.2); Mean Corpuscular HGB Conc 32.6 g/dl (32-36); Mean Corpuscular Hemoglobin 30.2 pg (26-34); Mean Corpuscular Volume 92.7 fl (80-100); Nucleated Red Blood Cells Absolute Auto 0.000 K/mm3 (0.0-0.012); Nucleated Red Blood Cells Perc 0.0 % (0.0-0.2); Platelet Count Result 248 k/mm3 (150-375); Red Blood Count 4.50 M/mm3 (4.2-5.4); White Blood Count 5.4 K/mm3 (4.5-10.0)
[2024-10-21 13:15] LABS: Alanine Aminotransferase 21 U/L (6-35); Albumin Level 4.2 g/dL (3.5-5.1); Alkaline Phosphatase 72 U/L (38-126); Anion Gap 7 mmol/L (4-12); Aspartate Amino Transferase 52 U/L (14-36); Bilirubin,Total 0.5 mg/dL (0.2-1.3); Blood Urea Nitrogen 12 mg/dL (7-17); Calcium 9.9 mg/dL (8.4-10.2); Carbon Dioxide 31 mmol/L (22-30); Chloride 102 mmol/L (98-107); Cholesterol 229 mg/dL (0-200); Estimated Glomerular Filt Rate 60; Glucose 97 mg/dL (65-110); HDL Direct 50 mg/dL; Potassium 4.6 mmol/L (3.4-5.0); Sodium 140 mmol/L (137-145); Total Protein 8.0 g/dL (6.3-8.2); Triglycerides 95 mg/dL (<150)
[2024-10-21 13:51] LABS: Thyroid Stimulating Hormone 1.720 uIU/mL (0.465-4.680)
== END 2024-10-21 09:59 | disposition home or self-care (01) ==
LOC: ANHGOSHLAB 09:58
PROVIDERS: PCP Family Medicine; Visit Provider Student in an Organized Health Care Education/Training Program
DX: E78.49 Other hyperlipidemia (principal); E03.9 Hypothyroidism, unspecified; I10 Essential (primary) hypertension
CPT/HCPCS: 36415; 80053; 80061; 84443; 85025

== ENCOUNTER 2025-02-22 11:41 | Outpatient (CLI) | payer BC, SELFPAY ==
--- OUTSIDE RECORDS SUMMARY | 2025-02-22 13:25 | XMS_ITS | Clinical Summary ---
Author Organization [facility] Address [address] [place]: Epic Prelude ADT MIKAYLA MARTINEZ [address] Care Team Providers Care Low Altitude Air Defense Officer Name Role Phone Unavailable Primary Care Provider Unavailabl e Social History Tobacco Use Types Packs/Day Years Used Date Smoking Tobacco: Never Assessed Comments Unknown Sex and Gender Information Value Date Recorded Sex Assigned at Not on file Legal Sex Female 3:35 AM [employer]CTIONS [employer] Gender Identity Not on file Sexual Orientation [...]
--- OUTSIDE RECORDS SUMMARY | 2025-02-22 13:25 | XMS_ITS | Clinical Summary ---
Author Organization [facility] Address [address] [place] [address] Care Team Providers Care Principal Technical Writer Name Role Phone Bipin Santiago MD Primary Care Provider [phone] Source Comments [facility],non-owned Affiliates and Associated Physician Practices is amultiple site organization consisting of ambulatory clinics and hospital sitesin [place], [place], [place] and [place]. This disclosure is being madepursuant to the Care Everywhere program and may not contain all information available regarding this patient. Last updated 17.[facility] Allergies No known active allergies Medications * [...] HIV SCREENING 11/14/1975 HEPATITIS C SCREENING 11/09/1978 PAP with HPV 1990 PNEUMOCOCCAL VACCINE 50+ (1 of 1 - PCV) 2010 ZOSTER VACCINE (1 of 2) 2010 Cervical Cancer Screening 01/22/2020 PAP SMEAR 01/22/2020 01/21/2017 COLOGUARD (AGES 45-75) - COL ON CA SCREENING 03/28/2023 03/28/2020 Colorectal Cancer Screening 03/28/2023 DEPRESSION SCREENING 03/31/2024 COVID-19 VACCINE (1 - 2024-2 6 season) 2024 INFLUENZA VACCINE (#1) 2024 0, 01/08/2019, 01/29/2017 DTAP/TDAP/TD VACCINES (2 - [...] patient's age to complete this topic Insurance [facility] Advance Directives * Full Code (Latest Code Status on File) Date Activated Date Inactivated Comments 07/31/2021 4:53 AM 07/31/2021 4:22 PM Care Teams Principal Technical Writer Relationship Specialty Start Date End Date Bipin Santiago MD [address] [place] [address] PCP - General Internal Medicine 07/31/21
--- OUTSIDE RECORDS SUMMARY | 2025-02-22 13:25 | XMS_ITS | Encounter Summary ---
Author Organization [facility] Address 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
[2025-02-22 20:10] LABS: Anion Gap 10 mmol/L (4-12); Blood Urea Nitrogen 14 mg/dL (7-17); Calcium 9.5 mg/dL (8.4-10.2); Carbon Dioxide 29 mmol/L (22-30); Chloride 100 mmol/L (98-107); Estimated Glomerular Filt Rate > 60; Glucose 95 mg/dL (65-110); Potassium 3.6 mmol/L (3.4-5.0); Sodium 139 mmol/L (137-145)
== END 2025-02-22 11:42 | disposition home or self-care (01) ==
LOC: ANHGOSHLAB 11:42
PROVIDERS: PCP Family Medicine; Visit Provider Family Medicine
DX: E87.6 Hypokalemia (principal)
CPT/HCPCS: 36415; 80048